=== PATIENT | female | born 1965 | race African-American/Black ===

== ENCOUNTER → 2017-07-28 | Day surgery (SDC) | payer BC ==
[2015-05-14 13:30] VITALS: BP 166/90
[~2017-07-28] MED LIST: CIPR500T PO; CYCL-331 PO; DIAZ5TAB4 PO; GABA600T2 PO; HYDR-2758 PO; HYDR25TA PO; IV RINGERS SOLUTION,LACTATED 1,000 ML IV ONE; LIDOCAINE 2% PF Vial for OR 5 ML VIAL. ONE; MAGN250T10 PO; MELO7.5T29 PO; MONT10TA6 PO; OMEP20CA9 PO; POTA20TA4 PO; PRED50TA PO; PROPOFOL 0 ML IV ONE; PROPOFOL 20 ML IV ONE; TOPI25TA7 PO; TRIA1CAP3 PO; XOPENEX HFA15 GM IH
== END | disposition home or self-care (01) ==
LOC: SURG 10:02
PROVIDERS: ATTEND Internal Medicine Gastroenterology
DX: K29.70 Gastritis, unspecified, without bleeding (principal); K44.9 Diaphragmatic hernia without obstruction or gangrene; Z88.6 Allergy status to analgesic agent; Z88.0 Allergy status to penicillin; Z88.8 Allergy status to other drugs, medicaments and biological substances
CPT/HCPCS: 43239; 82947; J2704; J7120; J2001

== ENCOUNTER 2018-04-11 02:49 | Inpatient (IN) | payer SELFPAY ==
[~2018-04-11] VITALS: Ht 160 cm; Wt 107.5 kg
[~2018-04-11 02:49] MED LIST changes: -IV RINGERS SOLUTION,LACTATED 1,000 ML IV ONE; -LIDOCAINE 2% PF Vial for OR 5 ML VIAL. ONE; -PROPOFOL 0 ML IV ONE; -PROPOFOL 20 ML IV ONE
--- NOTE | 2018-04-11 02:58 | ED.ADGEN ---
Past History Past Medical History: Anxiety, Arthritis, Asthma, COPD, Hypertension, Seizure, Other Past Surgical History: Appendectomy, Other Alcohol Use: None Drug Use: None Adult General Chief Complaint Chief Complaint ".. For last week and half.. I ve had this arm pain.. but I was pulling out a T shirt from wash .and I went to shake it really hard.. and I forgot.. and used my Lt arm... and now my elbow and wrist really hurts.. " HPI HPI Patient is a 52 year old female who presents with above hx and complaints of increased Lt arm pain. Pt. rates pain as 10 /10 tonight.. Pt has pain with any movement of Lt. arm. Pt. has had pain in Lt arm before after DVT / phlebitis from IV injection of FE for her chronic anemia. Pt. Pt. has hx of arthritis, HTN, COPD, Asthma, Fe def. Anemia, B vit. def, Chronic Headaches, Seizure disorder, Chronic Back pain, Obstructive Sleep Apnea, Obesity and Gout. Pt. normally follow s with Dr. Yip. Review of Systems Review of Systems Constitutional: Denies fever or chills [] Eyes: Denies change in visual acuity, redness, or eye pain [] HENT: Denies nasal congestion or sore throat [] Respiratory: Hx of Wheezing Cardiovascular: No additional information not addressed in HPI [] GI: Denies abdominal pain, nausea, vomiting, bloody stools or diarrhea [] : Denies dysuria or hematuria [] Musculoskeletal: Complaints of joint pain []More pain in Lt arm. Integument: Denies rash or skin lesions [] Neurologic: Denies headache, focal weakness or sensory changes [] Endocrine: Denies polyuria or polydipsia [] All other systems were reviewed and found to be within normal limits, except as documented in this note. Family History Family History Non-contributory Current Medications Current Medications Current Medications Medications (Trade) Dose Ordered Sig/Richa Start Time Stop Time Status Last Admin Dose Admin Aspirin (Children'S Aspirin) 324 mg 1X ONCE 04/11/18 03:30 04/11/18 03:31 DC 04/11/18 03:52 324 MG Colchicine (Colcrys) 0.6 mg 1X ONCE 04/11/18 03:30 04/11/18 03:31 DC 04/11/18 03:51 0.6 MG Lactated Ringer's 1,000 ml @ 1,000 mls/hr Q1H 04/11/18 03:30 04/11/18 04:30 DC 04/11/18 03:52 1,000 MLS/HR Morphine Sulfate (Morphine 10mg Syringe) 10 mg 1X ONCE 04/11/18 03:30 04/11/18 03:31 DC 04/11/18 03:52 10 MG See nursing for home meds Allergies Allergies Allergies Coded Allergies Type Severity Reaction Last Updated Verified codeine Allergy Intermediate respiratory issues 04/04/15 Yes iodine Allergy Intermediate 04/04/15 Yes iodine Allergy Intermediate 01/02/15 No penicillin Allergy Intermediate 05/14/15 Yes Barbiturates Adverse Reaction Intermediate too drowsy 04/04/15 Yes Physical Exam Physical Exam Constitutional:in acute distress, appears very uncomfortable in appearance. [] HENT: Normocephalic, atraumatic, bilateral external ears normal, oropharynx moist, no oral exudates, nose normal. [] Eyes: PERRLA, EOMI, conjunctiva normal, no discharge. [] Neck: Normal range of motion, no tenderness, supple, no stridor. [] Cardiovascular:Tachycardia Heart rate regular rhythm, no murmur [] Lungs & Thorax: Bilateral breath sounds equal at apex with scattered wheezes on auscultation [] Old surgery scars. Abdomen: Bowel sounds normal, soft, no tenderness, no masses, no pulsatile masses. Obese, old surgery scars. Skin: Warm, dry, no erythema, no rash. [] Back: No tenderness, no CVA tenderness. [] Extremities: Lt arm, elbow tenderness, no cyanosis, no clubbing, ROM limited in lt arm due to pain, trace edema. [] Neurologic: Alert and oriented X 3, normal motor function, normal sensory function, no focal deficits noted. [] Psychologic: Affect anxious, judgement normal, mood normal. [] Current Patient Data Vital Signs Vital Signs Date Time Temp Pulse Resp B/P (MAP) Pulse Ox O2 Delivery O2 Flow Rate FiO2 04/11/18 02:55 97.9 103 18 98 Room Air Lab Results Laboratory Tests Test 04/11/18 03:27 04/11/18 03:29 White Blood Count 9.1 x10^3/uL (4.0-11.0) Red Blood Count 4.93 x10^6/uL (3.50-5.40) Hemoglobin 14.2 g/dL (12.0-15.5) Hematocrit 42.6 % (36.0-47.0) Mean Corpuscular Volume 86 fL (79-100) Mean Corpuscular Hemoglobin 29 pg (25-35) Mean Corpuscular Hemoglobin Concent 33 g/dL (31-37) Red Cell Distribution Width 14.4 % (11.5-14.5) Platelet Count 254 x10^3/uL (140-400) Neutrophils (%) (Auto) 48 % (31-73) Lymphocytes (%) (Auto) 40 % (24-48) Monocytes (%) (Auto) 9 % (0-9) Eosinophils (%) (Auto) 3 % (0-3) Basophils (%) (Auto) 0 % (0-3) Neutrophils # (Auto) 4.3 x10^3uL (1.8-7.7) Lymphocytes # (Auto) 3.6 x10^3/uL (1.0-4.8) Monocytes # (Auto) 0.8 x10^3/uL (0.0-1.1) Eosinophils # (Auto) 0.3 x10^3/uL (0.0-0.7) Basophils # (Auto) 0.0 x10^3/uL (0.0-0.2) Erythrocyte Sedimentation Rate 13 (0-25) Reticulocyte Count (auto) 1.9 % (0.5-2.5) Prothrombin Time 10.1 SEC (9.4-11.4) Prothrombin Time INR 1.0 (0.9-1.1) PTT 25 SEC (23-33) D-Dimer (Mohini) 0.59 mg/L (0.00-0.50) H Sodium Level 138 mmol/L (136-145) Potassium Level 3.5 mmol/L (3.5-5.1) Chloride Level 101 mmol/L (98-107) Carbon Dioxide Level 28 mmol/L (21-32) Anion Gap 9 (6-14) Blood Urea Nitrogen 14 mg/dL (7-20) Creatinine 1.1 mg/dL (0.6-1.0) H Estimated GFR (Cockcroft-Gault) 62.6 Glucose Level 184 mg/dL (70-99) H Uric Acid 7.2 mg/dL (2.6-6.0) H Calcium Level 9.1 mg/dL (8.5-10.1) Magnesium Level 1.9 mg/dL (1.8-2.4) Total Bilirubin 0.4 mg/dL (0.2-1.0) Direct Bilirubin 0.1 mg/dL (0.0-0.2) Aspartate Amino Transferase (AST) 23 U/L (15-37) Alanine Aminotransferase (ALT) 52 U/L (14-59) Alkaline Phosphatase 168 U/L (46-116) H Creatine Kinase 156 U/L (26-192) Creatine Kinase MB (Mass) 0.6 ng/mL (0.0-3.6) Creatine Kinase MB Relative Index 0.4 % (0-4) Troponin I Quantitative < 0.017 ng/mL (0-0.055) C-Reactive Protein 13.7 mg/L (0-3.3) H KG-Jxk-H-Type Natriuretic Peptide 18 pg/mL (0-124) Total Protein 8.0 g/dL (6.4-8.2) Albumin 3.8 g/dL (3.4-5.0) Lipase 148 U/L (73-393) Urine Collection Type Unknown Urine Color Yellow Urine Clarity Clear Urine pH 5.5 Urine Specific [place] 1.020 Urine Protein Neg (NEG-TRACE) Urine Glucose (UA) Neg mg/dL (NEG) Urine Ketones (Stick) Neg mg/dL (NEG) Urine Blood Neg (NEG) Urine Nitrite Neg (NEG) Urine Bilirubin Neg (NEG) Urine Urobilinogen Dipstick 0.2 mg/dL (0.2 mg/dL) Urine Leukocyte Esterase Neg (NEG) Urine RBC 0 /HPF (0-2) Urine WBC Occ /HPF (0-4) Urine Squamous Epithelial Cells Few /LPF Urine Bacteria 0 /HPF (0-FEW) Urine Opiates Screen Neg (NEG) Urine Methadone Screen Neg (NEG) Urine Barbiturates Neg (NEG) Urine Phencyclidine Screen Neg (NEG) Urine Amphetamine/Methamphetamine Neg (NEG) Urine Benzodiazepines Screen Neg (NEG) Urine Cocaine Screen Neg (NEG) Urine Cannabinoids Screen Neg (NEG) Urine Ethyl Alcohol Neg (NEG) EKG EKG My interpretation of EKG shows sinus tachycardia at 102 bpm. There is some nonspecific contour abnormalities in anterior lateral leads. There is some nonspecific T-wave changes no findings acute STEMI of contralateral changes.[] Radiology/Procedures Radiology/Procedures My interpretation chest x-ray shows borderline cardiomegaly. No acute cardiopulmonary findings. My interpretation of the elbow wrist left arm show osteoarthritis of the joints. But no obvious fracture dislocation. Formal reading is pending[] Course & Med Decision Making Course & Med Decision Making Pertinent Labs and Imaging studies reviewed. (See chart for details) Discussed testing and presentation with Dr. Yip.- Will admit for further evaluation and treatment. Suspect inflammatory disorder such as gout or pseudogout. We'll do small doses of colchicine pending labs. Note there has been late repotin in labs and charting due to computer malfunction. [] Final Impression Final Impression 1. Left arm pain/ CP 2. Hypertension[] 3. DM 184 4. Elevated Uric Acid 7.2 5. Elevated Creat. 6. Elevated CRP 7. Elevated D-dimer Dragon Disclaimer Dragon Disclaimer This electronic medical record was generated, in whole or in part, using a voice recognition dictation system. KALIE HENDRIX MD Apr 11, 2018 02:58
[2018-04-11] MEDS ORDERED: COLCHICINE 0.6 MG TABLET PO ONE (03:30)
[2018-04-11] MEDS ORDERED: IV RINGERS SOLUTION,LACTATED 1,000 ML IV SCH (03:30)
[2018-04-11] MEDS ORDERED: ASPIRIN 81 MG TAB.CHEW PO ONE (03:30)
[2018-04-11] MEDS ORDERED: MORPHINE SULFATE 10 MG/ML SYRINGE. SQ ONE ×2 (03:30→05:00)
--- NOTE | 2018-04-11 03:34 | EKG ---
[address] [address] Test Date: 2018-04-11 Test Time: 03:27:35 Pat Name: JERROD CUMMINS Department: Room: Gender: F Child Welfare Assistant: YELENA : 1965 Requested By: KALIE HENDRIX Order Number: [id number] Reading MD: Dontrell Padilla MD Measurements Intervals [place] Rate: 102 P: 44 [place]: 138 QRS: 13 QRSD: 84 T: -8 QT: 322 QTc: 424 Interpretive Statements SINUS TACHYCARDIA Electronically Signed On 04-11-2018 11:15:14 CDT by Dontrell Padilla MD
[2018-04-11 03:51] LABS: BASO % 0 % (0-3); EOS # 0.3 x10^3/uL (0.0-0.7); EOS % 3 % (0-3); HEMATOCRIT 42.6 % (36.0-47.0); HEMOGLOBIN 14.2 g/dL (12.0-15.5); LYMPH # 3.6 x10^3/uL (1.0-4.8); LYMPH % 40 % (24-48); MEAN CORPUSCULAR HEMOGLOBIN 29 pg (25-35); MEAN CORPUSCULAR HGB CONC 33 g/dL (31-37); MEAN CORPUSCULAR VOLUME 86 fL (79-100); MONO # 0.8 x10^3/uL (0.0-1.1); MONO % 9 % (0-9); NEUT # 4.3 x10^3uL (1.8-7.7); NEUT % 48 % (31-73); PLATELET COUNT 254 x10^3/uL (140-400); RED BLOOD COUNT 4.93 x10^6/uL (3.50-5.40); RED CELL DISTRIBUTION WIDTH 14.4 % (11.5-14.5); WHITE BLOOD COUNT 9.1 x10^3/uL (4.0-11.0)
[2018-04-11 03:55] LABS: BACTERIA,URINE 0 /HPF (0-FEW); BILIRUBIN,URINE NEG (NEG); CLARITY,URINE CLEAR; COLOR,URINE YELLOW; GLUCOSE,URINE NEG (NEG); NITRITE,URINE NEG (NEG); RBC,URINE 0 /HPF (0-2); SQUAMOUS EPITHELIAL CELL,UR FEW /LPF; UROBILINOGEN,URINE 0.2 mg/dL (0.2 mg/dL); WBC,URINE OCC /HPF (0-4)
[2018-04-11 04:05] LABS: BARBITURATES NEG (NEG); BENZODIAZEPINES NEG (NEG); CANNABINOIDS NEG (NEG); COCAINE NEG (NEG); METHADONE NEG (NEG); OPIATES NEG (NEG); PHENCYCLIDINE NEG (NEG)
[2018-04-11 04:06] LABS: AMPHETAMINE/METHAMPHETAMINE NEG (NEG)
[2018-04-11 04:12] LABS: ALBUMIN 3.8 g/dL (3.4-5.0); C REACTIVE PROTEIN 13.7 mg/L (0-3.3); CALCIUM 9.1 mg/dL (8.5-10.1); CREATININE 1.1 mg/dL (0.6-1.0); DIRECT BILIRUBIN 0.1 mg/dL (0.0-0.2); GFR 62.6; MAGNESIUM 1.9 mg/dL (1.8-2.4); POTASSIUM 3.5 mmol/L (3.5-5.1); TOTAL BILIRUBIN 0.4 mg/dL (0.2-1.0); URIC ACID 7.2 mg/dL (2.6-6.0)
[2018-04-11] MEDS ORDERED: ENOXAPARIN ** NOTE DOSE ** SYRINGE SQ ONE (05:00)
[2018-04-11] MEDS ORDERED: ANTI-COAG MONITOR BY PHARMACY. MC PRN (05:15)
[2018-04-11 05:55] VITALS: BP 168/112
[2018-04-11] MEDS ORDERED: ERGO500027 PO (06:19)
[2018-04-11] MEDS ORDERED: METO25TA4 PO (06:19)
[2018-04-11] MEDS ORDERED: TOPI100T8 PO (06:20)
[2018-04-11 06:34] LABS: SEDIMENTATION RATE 13 (0-25)
--- NOTE | 2018-04-11 06:56 | RAD ---
PA and lateral chest x-ray HISTORY: Left shoulder pain and chest pain. FINDINGS: Heart size normal. Mediastinal silhouette is normal. No pneumothorax. No pleural effusions. On the frontal film at the right lung base there is a ill-defined 2 cm nodular density difficult to localize on the lateral film may project posteriorly. Left lung clear. Bones unremarkable. IMPRESSION: 2 cm nodular density at the right lower lobe, a pulmonary nodule is a possibility. Correlation with CT chest imaging recommended. Left elbow x-rays 3 views. HISTORY: Left elbow pain. FINDINGS: No abnormal elevation of the fat pads to suggest a joint effusion. No fracture. No dislocation. Small osteophytes at the ulna humeral joint. Soft tissues are unremarkable. IMPRESSION: No acute osseous injury of the left elbow. Osteoarthritis of the ulnohumeral joint. Left wrist x-rays 3 views. HISTORY: Left wrist pain. FINDINGS: No fracture, dislocation or arthritic change of the left wrist. The soft tissues are unremarkable. IMPRESSION: No acute osseous injury of the left wrist. Electronically signed by: Raman Rodríguez MD (04/11/2018 6:52 AM) [facility]
[2018-04-11] MEDS ORDERED: KETOROLAC 30 MG/ML VIAL. IV PRN (07:45)
[2018-04-11] MEDS ORDERED: LEVALBUTEROL TARTRATE IH SCH (09:15)
[2018-04-11] MEDS ORDERED: hydrOXYzine HCL 25 MG TABLET PO PRN (09:15)
[2018-04-11] MEDS ORDERED: ORPHENADRINE CITRATE 60 MG/2 ML VIAL. IM ONE ×2 (09:30→20:00)
[2018-04-11] MEDS ORDERED: ALBUTEROL SULFATE 2.5 MG/3 ML NEBU. NEB PRN (10:15)
[2018-04-11 10:53] VITALS: BP 186/116
[2018-04-11] MEDS: METOPROLOL TART IMMED RELEASE 25 MG TABLET PO SCH ×2 (10:58→20:21)
[2018-04-11] MEDS: TRIAMTERENE/HCTZ 37.5/25MG TABLET. PO SCH (10:58)
[2018-04-11] MEDS: POTASSIUM CHLORIDE 20 MEQ TABLET.ER. PO SCH (10:58)
[2018-04-11] MEDS: TOPIRAMATE 100 MG TABLET. PO SCH ×2 (10:59→20:21)
--- NOTE | 2018-04-11 12:11 | PDOC2 ---
CONSULT Date of Admission DATE: 04/11/18 TIME: 11:53 Reason for Consult: cp Problem List Problems Medical Problems: (1) Arm pain Status: Acute (2) Arm pain, left Status: Acute (3) Chest pain Status: Acute History of Present Illness Ms Varela is a 52 year old female who presents with complaints of chest, left arm and neck pain. She reports she woke yesterday am with the left arm and neck pain. Pain is sharp, shooting pain which is increased with movement of her head and left arm. She also reports mid sternal chest pressure and feeling like cant take deep breath. She does report that the chest discomfort has been off and on for at least 1 year. She reports episodes of PND. She reports a decrease in her functional capacity to < 1 block over the last year. She reports significant dyspnea and feeling like she might pass out if she walks 1 block. She reports occasional sensation of her heart racing with associated dyspnea and lightheadedness. Cardiovascular: HTN, hyperipidemia, Other (DVT upper arm post phlebitis after iron infusion) Pulmonary: COPD CENTRAL NERVOUS SYSTEM: Periperal neuropathy, Seizure GI: GERD, GI bleed Heme/Onc: Iron deficiency Anemia, Other (prior blood transfusions) Musculoskeletal: Other (back and neck pain, degenerative disc disease) Rheumatologic: Gout Endocrine: Diabetes Past Surgical History: Appendectomy, Other (menisectomy right knee x 2, breast reduction) Family History premature coronary disease in multiple family members Family History: Coronary Artery Disease, Diabetes, Heart Disease, Hypertension , Stroke Social History non smoker, no significant ETOH, no illicit drugs Current Medications Current Medications Aspirin (Children'S Aspirin) 324 mg 1X ONCE PO Last administered on 04/11/18at 03:52; Start 04/11/18 at 03:30; Stop 04/11/18 at 03:31; Status DC Lactated Ringer's 1,000 ml @ 1,000 mls/hr Q1H IV Last administered on at 03:52; Start 04/11/18 at 03:30; Stop 04/11/18 at 04:30; Status DC Morphine Sulfate (Morphine 10mg Syringe) 10 mg 1X ONCE SQ Last administered on 04/11/18at 03:52; Start 04/11/18 at 03:30; Stop 04/11/18 at 03:31; Status DC Colchicine (Colcrys) 0.6 mg 1X ONCE PO Last administered on 04/11/18at 03:51; Start 04/11/18 at 03:30; Stop 04/11/18 at 03:31; Status DC Morphine Sulfate (Morphine 10mg Syringe) 10 mg 1X ONCE SQ Last administered on 04/11/18at 04:51; Start 04/11/18 at 05:00; Stop 04/11/18 at 05:02; Status DC Enoxaparin Sodium (Lovenox 100mg Syringe) 100 mg 1X ONCE SQ Last administered on 04/11/18at 04:50; Start 04/11/18 at 05:00; Stop 04/11/18 at 05:02; Status DC Enoxaparin Sodium (Lovenox 100mg Syringe) 100 mg BID SQ ; Start 04/11/18 at 21: 00 Colchicine (Colcrys) 0.6 mg TID PO ; Start 04/11/18 at 14:00 Info (Anti-Coagulation Monitoring By Pharmacy) 1 each PRN DAILY PRN MC SEE COMMENTS; Start 04/11/18 at 05:15 Ketorolac Tromethamine (Toradol) 30 mg PRN Q6HRS PRN IV PAIN Last administered on 04/11/18at 09:10; Start 04/11/18 at 07:45; Stop 04/16/18 at 07:44 Cyclobenzaprine HCl (Flexeril) 10 mg TID PO ; Start 04/11/18 at 14:00 Hydroxyzine HCl (Atarax) 25 mg PRN TID PRN PO migraines; Start 04/11/18 at 09: 15 Metoprolol Tartrate (Lopressor) 25 mg BID PO Last administered on 04/11/18at 10: 58; Start 04/11/18 at 10:00 Potassium Chloride (Klor-Con) 20 meq DAILY PO Last administered on 04/11/18at 10 :58; Start 04/11/18 at 10:00 Vitamin D (Vitamin D3) 50,000 unit WEEKLY PO ; Start 04/18/18 at 09:00 Gabapentin (Neurontin) 600 mg TID PO ; Start 04/11/18 at 14:00 Non-Formulary Medication (Levalbuterol Tartrate (Xopenex Hfa)) 3 puff PRN Q4- 6HRS IH ; Start 04/11/18 at 09:15; Stop 04/11/18 at 10:10; Status DC Magnesium Oxide (Magnesium Oxide) 200 mg TID PO ; Start 04/11/18 at 14:00 Non-Formulary Medication (Meloxicam ) 7.5 mg TID PO ; Start 04/11/18 at 14:00; Stop 04/11/18 at 14:00; Status DC Montelukast Sodium (Singulair) 10 mg QHS PO ; Start 04/11/18 at 21:00 Pantoprazole Sodium (Protonix) 40 mg DAILYAC PO ; Start 04/12/18 at 07:30 Topiramate (Topamax) 100 mg BID PO Last administered on 04/11/18at 10:59; Start 04/11/18 at 10:00 Triamterene/HCTZ (Maxzide 37.5/ 25mg) 1 tab DAILY PO Last administered on at 10:58; Start 04/11/18 at 10:00 Orphenadrine Citrate (Norflex) 60 mg 1X ONCE IM Last administered on at 10:57; Start 04/11/18 at 09:30; Stop 04/11/18 at 09:51; Status DC Albuterol Sulfate (Ventolin) 2.5 mg PRN Q4HRS PRN NEB SHORTNESS OF BREATH; Start 04/11/18 at 10:15 Active Scripts Active Klor-Con M20 (Potassium Chloride) 20 Meq Tab.er.prt 1 Tab PO DAILY Reported Topiramate 100 Mg Tablet 100 Mg PO BID Vitamin D2 (Ergocalciferol (Vitamin D2)) 50,000 Unit Capsule 1 Cap PO WEEKLY weekly on tuesdays Metoprolol Tartrate 25 Mg Tablet 25 Mg PO BID Magnesium (Magnesium Oxide) 250 Mg Tablet 250 Mg PO TID Hydroxyzine Hcl 25 Mg Tablet 25 Mg PO PRN TID PRN Meloxicam 7.5 Mg Tablet 7.5 Mg PO TID Xopenex Hfa (Levalbuterol Tartrate) 15 Gm Hfa.aer.ad 3 Puff IH PRN Q4-6HRS Gabapentin 600 Mg Tablet 600 Mg PO TID Triamterene-Hctz 37.5-25 Mg Cp (Triamterene/Hydrochlorothiazid) 1 Each Capsule 1 Each PO DAILY Omeprazole 20 Mg Capsule.dr 20 Mg PO DAILY Singulair Tablet (Montelukast Sodium) 10 Mg Tablet 10 Mg PO DAILY Cyclobenzaprine Hcl 10 Mg Tablet 10 Mg PO TID Allergies: Coded Allergies: codeine (Verified Allergy, Intermediate, respiratory issues, 04/04/15) iodine (Verified Allergy, Intermediate, 04/04/15) iodine (Unverified Allergy, Intermediate, 01/02/15) penicillin (Verified Allergy, Intermediate, 05/14/15) Barbiturates (Verified Adverse Reaction, Intermediate, too drowsy, 04/04/15) Review of System as per HPI or negative Physical Exam musculoskeletal - palpable muscle spasm superior trapezius muscle, painful movement of neck and arm General: Alert, Oriented X3, Cooperative, mild distress HEENT: Atraumatic, EOMI, Mucous membr. moist/pink Lungs: Clear to auscultation Heart: Regular rate, Normal S1, Normal S2 Abdomen: Normal bowel sounds, Soft Extremities: No cyanosis, Normal pulses, Other (trace edema bilateral lower extremities) Neuro: Normal speech, Strength at 5/5 X4 ext Psych/Mental Status: Mental status NL, Mood NL VITALS Vital Signs Date Time Temp Pulse Resp B/P (MAP) Pulse Ox O2 Delivery O2 Flow Rate FiO2 04/11/18 10:58 94 186/116 04/11/18 10:53 97.6 24 90 Room Air Labs Laboratory Tests Test 04/11/18 03:27 04/11/18 03:29 04/11/18 07:21 04/11/18 10:36 White Blood Count 9.1 x10^3/uL (4.0-11.0) Red Blood Count 4.93 x10^6/uL (3.50-5.40) Hemoglobin 14.2 g/dL (12.0-15.5) Hematocrit 42.6 % (36.0-47.0) Mean Corpuscular Volume 86 fL (79-100) Mean Corpuscular Hemoglobin 29 pg (25-35) Mean Corpuscular Hemoglobin Concent 33 g/dL (31-37) Red Cell Distribution Width 14.4 % (11.5-14.5) Platelet Count 254 x10^3/uL (140-400) Neutrophils (%) (Auto) 48 % (31-73) Lymphocytes (%) (Auto) 40 % (24-48) Monocytes (%) (Auto) 9 % (0-9) Eosinophils (%) (Auto) 3 % (0-3) Basophils (%) (Auto) 0 % (0-3) Neutrophils # (Auto) 4.3 x10^3uL (1.8-7.7) Lymphocytes # (Auto) 3.6 x10^3/uL (1.0-4.8) Monocytes # (Auto) 0.8 x10^3/uL (0.0-1.1) Eosinophils # (Auto) 0.3 x10^3/uL (0.0-0.7) Basophils # (Auto) 0.0 x10^3/uL (0.0-0.2) Erythrocyte Sedimentation Rate 13 (0-25) Prothrombin Time 10.1 SEC (9.4-11.4) Prothromb Time International Ratio 1.0 (0.9-1.1) Activated Partial Thromboplast Time 25 SEC (23-33) D-Dimer (Mohini) 0.59 mg/L (0.00-0.50) Sodium Level 138 mmol/L (136-145) Potassium Level 3.5 mmol/L (3.5-5.1) Chloride Level 101 mmol/L (98-107) Carbon Dioxide Level 28 mmol/L (21-32) Anion Gap 9 (6-14) Blood Urea Nitrogen 14 mg/dL (7-20) Creatinine 1.1 mg/dL (0.6-1.0) Estimated GFR (Cockcroft-Gault) 62.6 Glucose Level 184 mg/dL (70-99) Uric Acid 7.2 mg/dL (2.6-6.0) Calcium Level 9.1 mg/dL (8.5-10.1) Magnesium Level 1.9 mg/dL (1.8-2.4) Total Bilirubin 0.4 mg/dL (0.2-1.0) Direct Bilirubin 0.1 mg/dL (0.0-0.2) Aspartate Amino Transf (AST/SGOT) 23 U/L (15-37) Alanine Aminotransferase (ALT/SGPT) 52 U/L (14-59) Alkaline Phosphatase 168 U/L (46-116) Creatine Kinase 156 U/L (26-192) Creatine Kinase MB (Mass) 0.6 ng/mL (0.0-3.6) Creatine Kinase MB Relative Index 0.4 % (0-4) Troponin I Quantitative < 0.017 ng/mL (0-0.055) < 0.017 ng/mL (0-0.055) C-Reactive Protein 13.7 mg/L (0-3.3) QY-Jwy-[id number]-Type Natriuretic Peptide 18 pg/mL (0-124) Total Protein 8.0 g/dL (6.4-8.2) Albumin 3.8 g/dL (3.4-5.0) Lipase 148 U/L (73-393) Urine Collection Type Unknown Urine Color Yellow Urine Clarity Clear Urine pH 5.5 Urine Specific [place] 1.020 Urine Protein Neg (NEG-TRACE) Urine Glucose (UA) Neg mg/dL (NEG) Urine Ketones (Stick) Neg mg/dL (NEG) Urine Blood Neg (NEG) Urine Nitrite Neg (NEG) Urine Bilirubin Neg (NEG) Urine Urobilinogen Dipstick 0.2 mg/dL (0.2 mg/dL) Urine Leukocyte Esterase Neg (NEG) Urine RBC 0 /HPF (0-2) Urine WBC Occ /HPF (0-4) Urine Squamous Epithelial Cells Few /LPF Urine Bacteria 0 /HPF (0-FEW) Urine Opiates Screen Neg (NEG) Urine Methadone Screen Neg (NEG) Urine Barbiturates Neg (NEG) Urine Phencyclidine Screen Neg (NEG) Urine Amphetamine/Methamphetamine Neg (NEG) Urine Benzodiazepines Screen Neg (NEG) Urine Cocaine Screen Neg (NEG) Urine Cannabinoids Screen Neg (NEG) Urine Ethyl Alcohol Neg (NEG) Glucose (Fingerstick) 168 mg/dL (70-99) Test 04/11/18 11:19 Glucose (Fingerstick) 202 mg/dL (70-99) Images EKG - sinus rhythm with nonspecific t abn in inferior leads, no acute ischemic changes CXR - IMPRESSION: 2 cm nodular density at the right lower lobe, a pulmonary nodule is a possibility. Correlation with CT chest imaging recommended. VQ pending Assessment/Plan 1. Chest pain 2. neck and upper arm pain, left 3. dyspnea on exertion and PND 4. palpitations with lightheadedness and dyspnea 5. hypertension 6. hyperlipidemia 7. diabetes mellitus 8. abn EKG 9. family history of premature coronary disease I suspect neck and arm pain secondary to cervical radiculopathy. Chest pain may also be secondary to this, however due to the progressive nature of the chest pain, fatigue and dyspnea as well as her comorbidities, suggest echo and MPI to rule out IHD. Check second set CE now. Check lipids. Resume home medications and plan for MPI tomorrow. Would recommend outpatient event/MCT monitoring. Will add ACEI for pressure control. HERMINIA DUARTE APRN Apr 11, 2018 12:11
[2018-04-11 12:39] VITALS: BP 157/95
[2018-04-11] MEDS ORDERED: NON FORMULARY ITEM (Meloxicam 7.5 MG) PO SCH (14:00)
--- NOTE | 2018-04-11 14:13 | RAD ---
NUCLEAR MEDICINE VENTILATION PERFUSION SCAN History: Chest pain x6 days. Chronic short of breath. History of DVT 2016. Comparison: Two-view chest, same day. Technique: Patient initially ventilated with 9.5 mCi xenon-133 gas. Anterior and posterior images of the lungs acquired during initial breath-hold, equilibrium, and washout phases. Perfusion portion performed after intravenous administration of 5.2 mCi Technetium 99m MAA. Multiple projection planar images of the lungs were obtained. Findings: The initial breath-hold ventilation images are homogeneous. There is retention of tracer in the right lung base. There is accumulation of xenon-133 in the liver on the washout phase images suggestive of fatty infiltration. Perfusion images demonstrate no perfusion defects. IMPRESSION: 1. Normal pulmonary perfusion. Negative for pulmonary embolism. 2. Air trapping in the right lung base. 3. Evidence of fatty infiltration of the liver. Electronically signed by: Colin Rajan MD (04/11/2018 2:10 PM) [facility]
--- NOTE | 2018-04-11 14:21 | HP ---
ADMIT DATE: 04/11/2018 HISTORY OF PRESENT ILLNESS: The patient is a 52-year-old female who came in through the Emergency Room. She was having severe pain down her left arm pain. She rated the pain as approximately 9/10. Notes it does bother her when she does move it. She has had previous DVT and phlebitis in that left arm as well. The patient apparently had some chest discomfort and the patient noted for week and a half, she has been having arm pain with pulling out a T-shirt from the washer, went to shake it very hard and used her left arm. Her whole arm hurts including her left elbow. The patient was admitted for rule out ND protocol, consult with Cardiology. PAST MEDICAL HISTORY: The patient does have a history of atrial fibrillation, generalized swelling. She has had history of benign brain tumor, seizures, headaches, coronary artery disease, deep venous thrombosis, asthma, arthritis, gout, orthopedic surgery for right meniscal tear repair, diabetes, morbid obesity, anxiety, anemia, blood transfusions, surgery for breast reduction in 1993, some sleep difficulties. IMMUNIZATIONS: Unknown. FAMILY HISTORY: Mother with myocardial infarction. Maternal grandfather with lung cancer, stroke and coronary artery disease in her mother and father had coronary artery disease and history of pacemaker. ALLERGIES: She has allergies or adverse reactions to BARBITURATES, CODEINE, IODINE AND PENICILLIN. SOCIAL HISTORY: Denies smoking, alcohol or drug use. MEDICATIONS: Xopenex, cyclobenzaprine, metoprolol tartrate, meloxicam, gabapentin 600 t.i.d., topiramate 100 mg b.i.d., hydroxyzine 25 mg t.i.d., potassium chloride 20 mEq a day, Maxzide 37.5 mg daily, montelukast sodium (Singulair) 10 mg daily, magnesium oxide, Prilosec 20 mg a day and vitamin D. REVIEW OF SYSTEMS: Outside of the pain down the left arm and left elbow, the patient denies any shortness of breath, did not have any nausea or diaphoresis with it. The patient otherwise seems to be resting fairly comfortably there. She denied problem with her bowels or bladder or any other activity along those lines. PHYSICAL EXAMINATION: GENERAL: On exam, this is a pleasant, -[place] female in no apparent distress. VITAL SIGNS: Blood pressure 157/95, respiratory rate 24, pulse 94. HEENT: The patient's head was atraumatic, normocephalic. Eyes: PERRLA without jaundice. The mouth and throat were normal. NECK: Supple, no JVD, carotid bruits or thyromegaly. LUNGS: Diminished throughout, poor movement of air. CARDIOVASCULAR: Regular sinus rhythm, S1, S2, without murmur, rub, thrill, or extra heart sounds. ABDOMEN: Soft, nontender. EXTREMITIES: No clubbing, cyanosis or edema except for the left arm. Unable to really move it. There was severe pain in the left arm, especially the left elbow, but from the shoulder, upper chest wall area down the arm itself. She had extreme difficulty in moving that arm if at all. The patient had x-rays taken of the left elbow which showed some possible osteoarthritis, the rest was unremarkable. The patient did have a 2 cm nodular density at the right lower lobe, pulmonary nodule is a possibility and would require a CT scan of her chest as an outpatient. The patient also is having a V/Q scan because of an elevated D-dimer and her fear of being in larger devices. KEN NAPIER MD DR: NANCY/mehran JOB#: [id number] / [id number]
--- NOTE | 2018-04-11 14:38 | CARD ---
MR#: [id number] Date of Study: 04/11/2018 Ordering Physician: HERMINIA DUARTE, Referring Physician: KEN NAPIER Tech: Rhonda Bourne YOLIS APPROVED REPORT EXAM: Two-dimensional and M-mode echocardiogram with Doppler and color Doppler. Other Information Quality : Good INDICATION Chest Pain 2D DIMENSIONS RVDd2.0 (2.9-3.5cm)Left Atrium(2D)3.7 (1.6-4.0cm) IVSd1.1 (0.7-1.1cm)Aortic Root(2D)2.6 (2.0-3.7cm) LVDd5.3 (3.9-5.9cm)LVOT Diameter2.1 (1.8-2.4cm) PWd1.0 (0.7-1.1cm)LVDs3.3 (2.5-4.0cm) SV88.9 mlLVEF(%)55.0 (>50%) Aortic Valve AoV Peak Fabricio.143.2cm/sAoV VTI27.7cm AO Peak GR.8.2mmHgLVOT Peak Fabricio.95.1cm/s LVOT VTI 21.53cmAO Mean GR.5mmHg TRINO (VMAX)2.31bt2UPC (VTI)2.60cm2 Mitral Valve MV E Iutrjwfl573.2cm/sMV DECEL MFRQ529gs MV A Pknaiupd02.6cm/sE/A Ratio1.2 Tricuspid Valve TR P. Nyhflfzq942zi/sRAP HROGAYDA9ziKe TR Peak Gr.77uqSiFMVF54hcIf Pulmonary Vein S1 Kmckjqff18.8cm/sD2 Cjibcgfi29.8cm/s LEFT VENTRICLE The left ventricle is normal size. There is normal left ventricular wall thickness. The left ventricu lar systolic function is normal. The Ejection Fraction is 55-60%. There is normal LV segmental wall m otion. RIGHT VENTRICLE The right ventricle is normal size. The right ventricular systolic function is normal. ATRIA The left atrium size is normal. The right atrium size is normal. The interatrial septum is intact wit h no evidence for an atrial septal defect or patent foramen ovale as noted on 2-D or Doppler imaging. AORTIC VALVE The aortic valve is calcified but opens well. Doppler and Color Flow revealed no significant aortic r egurgitation. There is no significant aortic valvular stenosis. MITRAL VALVE The mitral valve is normal in structure and function. There is no evidence of mitral valve prolapse. There is no mitral valve stenosis. Doppler and Color-flow revealed trace mitral regurgitation. TRICUSPID VALVE The tricuspid valve is normal in structure and function. Doppler and Color Flow revealed trace tricus pid regurgitation. The PA pressure was estimated at 19 mmHg. There is no tricuspid valve stenosis. PULMONIC VALVE The pulmonic valve is not well visualized. Doppler and Color Flow revealed no pulmonic valvular regur gitation. There is no pulmonic valvular stenosis. GREAT VESSELS The aortic root is normal in size. The ascending aorta is normal in size. The IVC is normal in size a nd collapses >50% with inspiration. PERICARDIAL EFFUSION There is no evidence of significant pericardial effusion. Critical Notification Critical Value: No <Conclusion> The left ventricular systolic function is normal. The Ejection Fraction is 55-60%. There is normal LV segmental wall motion. Trace mitral regurgitation. Trace tricuspid regurgitation. The PA pressure was estimated at 19 mmHg. There is no evidence of significant pericardial effusion. Signed by : Yohannes Elam, Electronically Approved : 04/11/2018 14:37:27
[2018-04-11] MEDS: CYCLOBENZAPRINE 10 MG TABLET. PO SCH ×2 (14:39→20:23)
[2018-04-11] MEDS: COLCHICINE 0.6 MG TABLET PO SCH ×2 (14:39→20:21)
[2018-04-11] MEDS: MAGNESIUM OXIDE 400 MG TABLET PO SCH ×2 (14:39→20:32)
[2018-04-11] MEDS: GABAPENTIN 300 MG CAPSULE. PO SCH ×2 (14:40→20:23)
[2018-04-11 15:23] VITALS: BP 170/118
--- NOTE | 2018-04-11 19:23 | RAD ---
INDICATION: Pain and edema. TECHNIQUE: Grayscale, color-flow, and spectral waveform analysis of the left upper extremity was performed. FINDINGS: All vessels are compressible with normal phasicity of waveform and augmentation. No thrombus on grayscale or color imaging is apparent. IMPRESSION: Exam is negative for deep vein thrombosis in the left upper extremity. Electronically signed by: Johnny Gracia MD (04/11/2018 7:20 PM) [facility]
--- NOTE | 2018-04-11 19:24 | RAD ---
Clinical Indication: Bilateral lower extremity pain Technique: Study is dated April 11, 2018. Rivera scale, color flow and spectral waveform analysis was performed of both lower extremities with and without compression. Findings: There is normal compressibility of all visualized vein segments. No evidence of DVT is present on grayscale or color images. There is normal phasicity of waveform. There is normal augmentation . Impression: No evidence of deep vein thrombosis in either lower extremity. Electronically signed by: Johnny Gracia MD (04/11/2018 7:21 PM) [facility]
[2018-04-11 19:45] VITALS: BP 168/115
[2018-04-11] MEDS: amLODIPine BESYLATE 10 MG TABLET PO SCH (20:22)
[2018-04-11] MEDS: ENOXAPARIN ** NOTE DOSE ** SYRINGE SQ SCH (20:23)
[2018-04-11] MEDS ORDERED: MONTELUKAST 10 MG TABLET. PO SCH (21:00)
[2018-04-11 23:01] VITALS: BP 166/119
[2018-04-12 01:09] LABS: HEMOGLOBIN A1C 7.8 % (4.8-5.6)
[2018-04-12 06:26] VITALS: BP 137/91
[2018-04-12 06:45] LABS: BASO # 0.1 x10^3/uL (0.0-0.2); BASO % 1 % (0-3); EOS # 0.6 x10^3/uL (0.0-0.7); EOS % 9 % (0-3); HEMATOCRIT 43.4 % (36.0-47.0); HEMOGLOBIN 14.4 g/dL (12.0-15.5); LYMPH # 2.7 x10^3/uL (1.0-4.8); LYMPH % 38 % (24-48); MEAN CORPUSCULAR HEMOGLOBIN 29 pg (25-35); MEAN CORPUSCULAR HGB CONC 33 g/dL (31-37); MEAN CORPUSCULAR VOLUME 86 fL (79-100); MONO # 0.5 x10^3/uL (0.0-1.1); MONO % 8 % (0-9); NEUT # 3.2 x10^3uL (1.8-7.7); NEUT % 44 % (31-73); PLATELET COUNT 251 x10^3/uL (140-400); RED BLOOD COUNT 5.02 x10^6/uL (3.50-5.40); RED CELL DISTRIBUTION WIDTH 14.3 % (11.5-14.5); WHITE BLOOD COUNT 7.2 x10^3/uL (4.0-11.0)
[2018-04-12 06:46] LABS: CALCIUM 9.1 mg/dL (8.5-10.1); CREATININE 0.8 mg/dL (0.6-1.0); GFR 90.4; POTASSIUM 3.7 mmol/L (3.5-5.1)
[2018-04-12] MEDS ORDERED: PANTOPRAZOLE 40 MG TABLET. PO SCH (07:30)
--- NOTE | 2018-04-12 08:24 | PDOC ---
PROGRESS NOTES Diagnosis Problem Problems Medical Problems: (1) Arm pain Status: Acute (2) Arm pain, left Status: Acute (3) Chest pain Status: Acute Assessment Problems Medical Problems: (1) Arm pain Status: Acute (2) Arm pain, left Status: Acute (3) Chest pain Status: Acute 1. Chest pain - MPI this afternoon 2. arm pain, neck pain, cephalgia - most likely secondary to radiculopathy 3. dyspnea - VQ negative, normal LV function. ? anginal equivalent. MPI this afternoon as above. 4. palpitations - no significant arrhythmias. Outpatient monitor. 5. hypertension - fair control. Continue to monitor, increase losartan if needed. 6. hyperlipidemia - elevated Tgs - aggressive control of diabetes 7. diabetes mellitus - per PCP Subjective continues to complain of headache, left arm and neck pain. no dyspnea, palpitations or lightheadedness currently. Objective Vital Signs Date Time Temp Pulse Resp B/P (MAP) Pulse Ox O2 Delivery O2 Flow Rate FiO2 04/12/18 06:26 97.8 76 18 137/91 (106) 97 Room Air Intake and Output 04/12/18 07:00 Intake Total 2360 ml Balance 2360 ml Intake Oral 1360 ml IV Total 1000 ml # Voids 4 Abdomen: Normal bowel sounds, Soft Heart: Regular rate, Normal S1, Normal S2 Extremities: No cyanosis, Normal pulses, Other (trace edema) General: Alert, Oriented X3, Cooperative Lungs: Clear to auscultation, Normal air movement Neuro: Normal speech, Strength at 5/5 X4 ext Psych/Mental Status: Mental status NL, Mood NL Review of Relevant I have reviewed the following items melisa (where applicable) has been applied. Labs Laboratory Tests Test 04/11/18 03:27 04/11/18 03:29 04/11/18 07:21 04/11/18 10:36 White Blood Count 9.1 x10^3/uL (4.0-11.0) Red Blood Count 4.93 x10^6/uL (3.50-5.40) Hemoglobin 14.2 g/dL (12.0-15.5) Hematocrit 42.6 % (36.0-47.0) Mean Corpuscular Volume 86 fL (79-100) Mean Corpuscular Hemoglobin 29 pg (25-35) Mean Corpuscular Hemoglobin Concent 33 g/dL (31-37) Red Cell Distribution Width 14.4 % (11.5-14.5) Platelet Count 254 x10^3/uL (140-400) Neutrophils (%) (Auto) 48 % (31-73) Lymphocytes (%) (Auto) 40 % (24-48) Monocytes (%) (Auto) 9 % (0-9) Eosinophils (%) (Auto) 3 % (0-3) Basophils (%) (Auto) 0 % (0-3) Neutrophils # (Auto) 4.3 x10^3uL (1.8-7.7) Lymphocytes # (Auto) 3.6 x10^3/uL (1.0-4.8) Monocytes # (Auto) 0.8 x10^3/uL (0.0-1.1) Eosinophils # (Auto) 0.3 x10^3/uL (0.0-0.7) Basophils # (Auto) 0.0 x10^3/uL (0.0-0.2) Erythrocyte Sedimentation Rate 13 (0-25) Reticulocyte Count (auto) 1.9 % (0.5-2.5) Prothrombin Time 10.1 SEC (9.4-11.4) Prothromb Time International Ratio 1.0 (0.9-1.1) Activated Partial Thromboplast Time 25 SEC (23-33) D-Dimer (Mohini) 0.59 mg/L (0.00-0.50) Sodium Level 138 mmol/L (136-145) Potassium Level 3.5 mmol/L (3.5-5.1) Chloride Level 101 mmol/L (98-107) Carbon Dioxide Level 28 mmol/L (21-32) Anion Gap 9 (6-14) Blood Urea Nitrogen 14 mg/dL (7-20) Creatinine 1.1 mg/dL (0.6-1.0) Estimated GFR (Cockcroft-Gault) 62.6 Glucose Level 184 mg/dL (70-99) Hemoglobin A1c 7.8 % (4.8-5.6) Uric Acid 7.2 mg/dL (2.6-6.0) Calcium Level 9.1 mg/dL (8.5-10.1) Magnesium Level 1.9 mg/dL (1.8-2.4) Total Bilirubin 0.4 mg/dL (0.2-1.0) Direct Bilirubin 0.1 mg/dL (0.0-0.2) Aspartate Amino Transf (AST/SGOT) 23 U/L (15-37) Alanine Aminotransferase (ALT/SGPT) 52 U/L (14-59) Alkaline Phosphatase 168 U/L (46-116) Creatine Kinase 156 U/L (26-192) Creatine Kinase MB (Mass) 0.6 ng/mL (0.0-3.6) Creatine Kinase MB Relative Index 0.4 % (0-4) Troponin I Quantitative < 0.017 ng/mL (0-0.055) < 0.017 ng/mL (0-0.055) C-Reactive Protein 13.7 mg/L (0-3.3) PO-Qqe-L-Type Natriuretic Peptide 18 pg/mL (0-124) Total Protein 8.0 g/dL (6.4-8.2) Albumin 3.8 g/dL (3.4-5.0) Triglycerides Level 291 mg/dL (0-150) Cholesterol Level 200 mg/dL (0-200) LDL Cholesterol, Calculated 98 mg/dL (0-100) VLDL Cholesterol, Calculated 58 mg/dL (0-40) Non-HDL Cholesterol Calculated 156 mg/dL (0-129) HDL Cholesterol 44 mg/dL (40-60) Cholesterol/HDL Ratio 4.0 Lipase 148 U/L (73-393) Thyroid Stimulating Hormone (TSH) 3.033 uIU/mL (0.358-3.740) Urine Collection Type Unknown Urine Color Yellow Urine Clarity Clear Urine pH 5.5 Urine Specific [place] 1.020 Urine Protein Neg (NEG-TRACE) Urine Glucose (UA) Neg mg/dL (NEG) Urine Ketones (Stick) Neg mg/dL (NEG) Urine Blood Neg (NEG) Urine Nitrite Neg (NEG) Urine Bilirubin Neg (NEG) Urine Urobilinogen Dipstick 0.2 mg/dL (0.2 mg/dL) Urine Leukocyte Esterase Neg (NEG) Urine RBC 0 /HPF (0-2) Urine WBC Occ /HPF (0-4) Urine Squamous Epithelial Cells Few /LPF Urine Bacteria 0 /HPF (0-FEW) Urine Opiates Screen Neg (NEG) Urine Methadone Screen Neg (NEG) Urine Barbiturates Neg (NEG) Urine Phencyclidine Screen Neg (NEG) Urine Amphetamine/Methamphetamine Neg (NEG) Urine Benzodiazepines Screen Neg (NEG) Urine Cocaine Screen Neg (NEG) Urine Cannabinoids Screen Neg (NEG) Urine Ethyl Alcohol Neg (NEG) Glucose (Fingerstick) 168 mg/dL (70-99) Test 04/11/18 11:19 04/11/18 16:24 04/11/18 20:28 04/12/18 06:10 Glucose (Fingerstick) 202 mg/dL (70-99) 175 mg/dL (70-99) 225 mg/dL (70-99) White Blood Count 7.2 x10^3/uL (4.0-11.0) Red Blood Count 5.02 x10^6/uL (3.50-5.40) Hemoglobin 14.4 g/dL (12.0-15.5) Hematocrit 43.4 % (36.0-47.0) Mean Corpuscular Volume 86 fL (79-100) Mean Corpuscular Hemoglobin 29 pg (25-35) Mean Corpuscular Hemoglobin Concent 33 g/dL (31-37) Red Cell Distribution Width 14.3 % (11.5-14.5) Platelet Count 251 x10^3/uL (140-400) Neutrophils (%) (Auto) 44 % (31-73) Lymphocytes (%) (Auto) 38 % (24-48) Monocytes (%) (Auto) 8 % (0-9) Eosinophils (%) (Auto) 9 % (0-3) Basophils (%) (Auto) 1 % (0-3) Neutrophils # (Auto) 3.2 x10^3uL (1.8-7.7) Lymphocytes # (Auto) 2.7 x10^3/uL (1.0-4.8) Monocytes # (Auto) 0.5 x10^3/uL (0.0-1.1) Eosinophils # (Auto) 0.6 x10^3/uL (0.0-0.7) Basophils # (Auto) 0.1 x10^3/uL (0.0-0.2) Sodium Level 136 mmol/L (136-145) Potassium Level 3.7 mmol/L (3.5-5.1) Chloride Level 101 mmol/L (98-107) Carbon Dioxide Level 28 mmol/L (21-32) Anion Gap 7 (6-14) Blood Urea Nitrogen 10 mg/dL (7-20) Creatinine 0.8 mg/dL (0.6-1.0) Estimated GFR (Cockcroft-Gault) 90.4 Glucose Level 187 mg/dL (70-99) Calcium Level 9.1 mg/dL (8.5-10.1) Test 04/12/18 07:17 Glucose (Fingerstick) 175 mg/dL (70-99) Medications Current Medications Aspirin (Children'S Aspirin) 324 mg 1X ONCE PO Last administered on 04/11/18 03:52; Start 04/11/18 at 03:30; Stop 04/11/18 at 03:31; Status DC Lactated Ringer's 1,000 ml @ 1,000 mls/hr Q1H IV Last administered on 03:52; Start 04/11/18 at 03:30; Stop 04/11/18 at 04:30; Status DC Morphine Sulfate (Morphine 10mg Syringe) 10 mg 1X ONCE SQ Last administered on 04/11/18 03:52; Start 04/11/18 at 03:30; Stop 04/11/18 at 03:31; Status DC Colchicine (Colcrys) 0.6 mg 1X ONCE PO Last administered on 04/11/18 03:51; Start 04/11/18 at 03:30; Stop 04/11/18 at 03:31; Status DC Morphine Sulfate (Morphine 10mg Syringe) 10 mg 1X ONCE SQ Last administered on 04/11/18 04:51; Start 04/11/18 at 05:00; Stop 04/11/18 at 05:02; Status DC Enoxaparin Sodium (Lovenox 100mg Syringe) 100 mg 1X ONCE SQ Last administered on 04/11/18 04:50; Start 04/11/18 at 05:00; Stop 04/11/18 at 05:02; Status DC Enoxaparin Sodium (Lovenox 100mg Syringe) 100 mg BID SQ Last administered on 20:23; Start 04/11/18 at 21:00 Colchicine (Colcrys) 0.6 mg TID PO Last administered on 04/11/18at 20:21; Start 04/11/18 at 14:00 Info (Anti-Coagulation Monitoring By Pharmacy) 1 each PRN DAILY PRN MC SEE COMMENTS; Start 04/11/18 at 05:15 Ketorolac Tromethamine (Toradol) 30 mg PRN Q6HRS PRN IV PAIN Last administered on 04/11/18at 09:10; Start 04/11/18 at 07:45; Stop 04/16/18 at 07:44 Cyclobenzaprine HCl (Flexeril) 10 mg TID PO Last administered on 04/11/18at 20: 23; Start 04/11/18 at 14:00 Hydroxyzine HCl (Atarax) 25 mg PRN TID PRN PO migraines; Start 04/11/18 at 09: 15 Metoprolol Tartrate (Lopressor) 25 mg BID PO Last administered on 04/11/18at 20: 21; Start 04/11/18 at 10:00 Potassium Chloride (Klor-Con) 20 meq DAILY PO Last administered on 04/11/18at 10 :58; Start 04/11/18 at 10:00 Vitamin D (Vitamin D3) 50,000 unit WEEKLY PO ; Start 04/18/18 at 09:00 Gabapentin (Neurontin) 600 mg TID PO Last administered on 04/11/18at 20:23; Start 04/11/18 at 14:00 Non-Formulary Medication (Levalbuterol Tartrate (Xopenex Hfa)) 3 puff PRN Q4- 6HRS IH ; Start 04/11/18 at 09:15; Stop 04/11/18 at 10:10; Status DC Magnesium Oxide (Magnesium Oxide) 200 mg TID PO Last administered on 04/11/18at 20:32; Start 04/11/18 at 14:00 Non-Formulary Medication (Meloxicam ) 7.5 mg TID PO ; Start 04/11/18 at 14:00; Stop 04/11/18 at 14:00; Status DC Montelukast Sodium (Singulair) 10 mg QHS PO Last administered on 04/11/18at 20: 20; Start 04/11/18 at 21:00 Pantoprazole Sodium (Protonix) 40 mg DAILYAC PO ; Start 04/12/18 at 07:30 Topiramate (Topamax) 100 mg BID PO Last administered on 04/11/18at 20:21; Start 04/11/18 at 10:00 Triamterene/HCTZ (Maxzide 37.5/ 25mg) 1 tab DAILY PO Last administered on at 10:58; Start 04/11/18 at 10:00 Orphenadrine Citrate (Norflex) 60 mg 1X ONCE IM Last administered on at 10:57; Start 04/11/18 at 09:30; Stop 04/11/18 at 09:51; Status DC Albuterol Sulfate (Ventolin) 2.5 mg PRN Q4HRS PRN NEB SHORTNESS OF BREATH; Start 04/11/18 at 10:15 Losartan Potassium (Cozaar) 25 mg DAILY PO ; Start 04/12/18 at 09:00 Amlodipine Besylate (Norvasc) 10 mg DAILY PO Last administered on 04/11/18at 20: 22; Start 04/11/18 at 19:45 Orphenadrine Citrate (Norflex) 60 mg 1X ONCE IM Last administered on at 20:24; Start 04/11/18 at 20:00; Stop 04/11/18 at 20:01; Status DC Active Scripts Active Klor-Con M20 (Potassium Chloride) 20 Meq Tab.er.prt 1 Tab PO DAILY Reported Topiramate 100 Mg Tablet 100 Mg PO BID Vitamin D2 (Ergocalciferol (Vitamin D2)) 50,000 Unit Capsule 1 Cap PO WEEKLY weekly on tuesdays Metoprolol Tartrate 25 Mg Tablet 25 Mg PO BID Magnesium (Magnesium Oxide) 250 Mg Tablet 250 Mg PO TID Hydroxyzine Hcl 25 Mg Tablet 25 Mg PO PRN TID PRN Meloxicam 7.5 Mg Tablet 7.5 Mg PO TID Xopenex Hfa (Levalbuterol Tartrate) 15 Gm Hfa.aer.ad 3 Puff IH PRN Q4-6HRS Gabapentin 600 Mg Tablet 600 Mg PO TID Triamterene-Hctz 37.5-25 Mg Cp (Triamterene/Hydrochlorothiazid) 1 Each Capsule 1 Each PO DAILY Omeprazole 20 Mg Capsule.dr 20 Mg PO DAILY Singulair Tablet (Montelukast Sodium) 10 Mg Tablet 10 Mg PO DAILY Cyclobenzaprine Hcl 10 Mg Tablet 10 Mg PO TID Vitals/I & O Vital Sign - Last 24 Hours 04/11/18 04/11/18 04/11/18 04/11/18 10:53 10:58 12:39 15:23 Temp 97.6 98.0 Pulse 94 94 77 83 Resp 24 24 B/P (MAP) 186/116 (139) 186/116 157/95 (115) 170/118 (135) Pulse Ox 90 95 O2 Delivery Room Air Room Air 04/11/18 04/11/18 04/11/18 04/11/18 19:45 20:00 20:21 20:22 Temp 97.2 Pulse 84 83 83 Resp 20 B/P (MAP) 168/115 (132) 170/118 170/118 Pulse Ox 98 O2 Delivery Room Air Room Air 04/11/18 04/12/18 23:01 06:26 Temp 97.0 97.8 Pulse 76 76 Resp 18 18 B/P (MAP) 166/119 (135) 137/91 (106) Pulse Ox 95 97 O2 Delivery Room Air Room Air Intake and Output 04/11/18 04/11/18 04/12/18 15:00 23:00 07:00 Intake Total 240 ml 1240 ml 880 ml Balance 240 ml 1240 ml 880 ml HERMINIA DUARTE [employer] 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
[2018-04-12] MEDS: amLODIPine BESYLATE 10 MG TABLET PO SCH (08:26)
[2018-04-12] MEDS: GABAPENTIN 300 MG CAPSULE. PO SCH ×2 (08:26→14:00)
[2018-04-12] MEDS: TRIAMTERENE/HCTZ 37.5/25MG TABLET. PO SCH (08:26)
[2018-04-12] MEDS: TOPIRAMATE 100 MG TABLET. PO SCH (08:26)
[2018-04-12] MEDS: COLCHICINE 0.6 MG TABLET PO SCH ×2 (08:26→14:00)
[2018-04-12] MEDS: MAGNESIUM OXIDE 400 MG TABLET PO SCH ×2 (08:27→13:59)
[2018-04-12] MEDS: POTASSIUM CHLORIDE 20 MEQ TABLET.ER. PO SCH (08:27)
[2018-04-12] MEDS: CYCLOBENZAPRINE 10 MG TABLET. PO SCH ×2 (08:27→13:59)
[2018-04-12] MEDS: ENOXAPARIN ** NOTE DOSE ** SYRINGE SQ SCH (08:28)
[2018-04-12] MEDS ORDERED: LOSARTAN 25 MG TABLET. PO SCH (09:00)
[2018-04-12 11:14] VITALS: BP 140/95
[2018-04-12] MEDS ORDERED: REGADENOSON 0.4 MG/5 ML DISP.SYRIN. IV ONE (13:15)
[2018-04-12] MEDS: METOPROLOL TART IMMED RELEASE 25 MG TABLET PO SCH (14:00)
[2018-04-12] MEDS ORDERED: MELOXICAM 7.5 MG TABLET PO PRN (14:30)
[2018-04-12 14:46] VITALS: BP 124/85
--- NOTE | 2018-04-12 15:57 | RAD ---
MR#: [id number] Date of Study: 04/12/2018 Ordering Physician: HERMINIA DUARTE, Referring Physician: RODY MCKINLEY Tech: RT Jaydon Holcomb) (N) APPROVED REPORT Test Type: Pharmacological Stress Nurse/Tech: RT Aicha (Debbie) (N) Test Indications: chest pain and abnormal EKG Cardiac History: HTN Medications: see EHR Medical History: see EHR Resting ECG: sinus rhythm with non specific changes inferior leads Resting Heart Rate: 108 bpm Resting Blood Pressure: 165/91mmHg Pretest Chest Pain: None Nurse/Tech Notes Consent: The procedure was explained to the patient in lay terms. Informed consent was witnessed. Mook eout was entered into [employer]. History and Stress Test performed by RT Jaydon Holcomb) (N) Pharm. Details Pharmacologic stress testing was performed using 0.4mg per 5ml of regadenoson given intravenously ove r 7-10 seconds. Stress Symptoms chest pain, lightheadedness and nausea POST EXERCISE Reason for Termination: Infusion complete Max HR: 144 bpm Max Blood Pressure: 166/86mmHg Chest Pain: Yes. INTERPRETATION Stress EKG Conclusion: Baseline EKG showed sinus rhythm. No ischemic changes at peak stress. No arr hythmias. Imaging Protocol IMAGE PROTOCOL: Stress Tc-99m/rest Tc-99m 2 days Rest: Stress: Viability: Radiopharm.Tc99m Sestamibi [id number] Duration 15min. Img Date 04/12/2018 Inj-Img [id number]. Stress Admin Site: IV - Right AntecubitalAdministrator: RT Jaydon Holcomb)(N) STRESS DATA End Diast. Vol.82.0mlAv. Heart Fuxw178.0bpm LVEDV index BSA1.0mlCardiac Output0.1L/min End Syst. Vol.36.0mlCO Index BSA5.4L/min LVESV index BSA1.0mlMyocardial Hrpc183.0g Eject. Zzetoabe20.0% Stress Rates Pk. Fill Rate4.82EDV/secLVtime Pk. Fill 155.84msec Pk. Empty Rate5.27ESV/secLVtime Pk. Eject90.38msec 1/3 Pk. Fill0.92EDV/sec Stress Scores Regional WT3.00Summed WT30.00 Regional WM0.00Summed WM16.00 LV Perfusion Stress scintigraphic images did not show any significant perfusion defects. Wall Motion Normal left ventricle systolic function with ejection fraction calculated at 56%. LV Perf. Quant 17 Seg. SSS1.00 Stress Defect Extent (% LAD)0.00Rest Defect Extent (% LAD)Rev. Defect Extent (% LAD)0.00 Stress Defect Extent (% LCX) 0.00Rest Defect Extent (% LCX)Rev. Defect Extent (% LCX)0.00 Stress Defect Extent (% RCA)0.00Rest Defect Extent (% RCA)Rev. Defect Extent (% RCA)0.00 Stress Defect Extent (% KELLY)0.00Rest Defect Extent (% KELLY)Rev. Defect Extent (% KELLY)0.00 Conclusion 1. Regadenoson cardioisotope stress test did not show any evidence of ischemia or infarct. 2. Normal left ventricular systolic function with ejection fraction calculated at 56%. 3. Low risk for cardiac events. Signed by : Yohannes Elam, Electronically Approved : 04/12/2018 15:56:34
[2018-04-12] MEDS ORDERED: LOSA25TA PO (16:33)
[2018-04-12] MEDS ORDERED: AMLO10TA2 PO (16:33)
--- NOTE | 2018-04-12 20:20 | DS ---
DATE OF DISCHARGE: 04/12/2018 HOSPITAL COURSE: A 52-year-old female with severe pain in her left arm. The patient otherwise says she is getting relief from the muscle relaxer. Apparently, she had her nuclear scans today and everything looked very normal. She will follow up with Cardiology as an outpatient. Her ejection fraction was approximately 56%, low risk for cardiovascular disease. Otherwise, the patient's pulse did go up to 100, blood pressure 124/85, respiratory rate 20, pulse 100, but no obvious reasons for that. She was afebrile. She may have been just excited. In any case, the patient will continue to be monitored as an outpatient. She will have some muscle relaxers that seemed to help her the most. Some Norflex in the hospital seem to give her the best relief to her discomfort there. Otherwise, we scan her whole left arm, shoulder complex, and outside of maybe some mild arthritis, nothing significant could be entertained there. The patient also had a pulmonary function, but did not show any signs of clot. IMPRESSION: Chest pain, unknown etiology, severe left arm pain and severe spasm. The patient will continue to be monitored and make further evaluation on her as an outpatient. We will have her follow up probably with the Pain Clinic if her pain continues. See MRAD. Decreased activity, severe radicular pain as well down the left arm as well as chest pain. PLAN: As above. KEN NAPIER MD DR: NANCY/mehran JOB#: [id number] / [id number]
[2018-04-13] MEDS ORDERED: ENOXAPARIN 40 MG/0.4 ML SYRINGE. SQ SCH (09:00)
[2018-04-13] MEDS ORDERED: MELOXICAM 7.5 MG TABLET PO SCH (09:00)
[2018-04-18] MEDS ORDERED: CHOLECALCIFEROL (VITAMIN D3) 50,000 UNIT CAPSULE PO SCH (09:00)
== END 2018-04-12 17:11 | disposition home or self-care (01) | DRG 313 ==
LOC: ER 02:49 → 1 SOUTH 03:30
PROVIDERS: ADMIT Family Medicine; ATTEND Family Medicine
DX: R07.9 Chest pain, unspecified (principal); D50.9 Iron deficiency anemia, unspecified; E11.9 Type 2 diabetes mellitus without complications; E66.9 Obesity, unspecified; E78.5 Hyperlipidemia, unspecified; Z88.8 Allergy status to other drugs, medicaments and biological substances; G40.909 Epilepsy, unspecified, not intractable, without status epilepticus; G47.33 Obstructive sleep apnea (adult) (pediatric); G62.9 Polyneuropathy, unspecified; G89.29 Other chronic pain; I10 Essential (primary) hypertension; I25.118 Atherosclerotic heart disease of native coronary artery with other forms of angina pectoris; I48.91 Unspecified atrial fibrillation; J44.9 Chronic obstructive pulmonary disease, unspecified; K21.9 Gastro-esophageal reflux disease without esophagitis; M10.9 Gout, unspecified; M54.10 Radiculopathy, site unspecified; Z80.1 Family history of malignant neoplasm of trachea, bronchus and lung; Z82.3 Family history of stroke; Z82.49 Family history of ischemic heart disease and other diseases of the circulatory system; Z83.3 Family history of diabetes mellitus; Z86.011 Personal history of benign neoplasm of the brain; Z86.718 Personal history of other venous thrombosis and embolism; Z86.72 Personal history of thrombophlebitis; Z90.49 Acquired absence of other specified parts of digestive tract; E66.01 Morbid (severe) obesity due to excess calories; F41.9 Anxiety disorder, unspecified; M19.90 Unspecified osteoarthritis, unspecified site
CPT/HCPCS: 36415; 71046; 73080; 73110; 78452; 78582; 80048; 80061; 80076; 80307; 81001; 82553; 82947; 83036; 83690; 83735; 83880; 84443; 84484; 84550; 85025; 85045; 85379; 85610; 85651; 85730; 86140; 93005; 93017; 93306; 93970; 93971; 96360; 96361; 96372; 96374; 96375; A9500; A9540; A9558; G0238; J1650; J1885; J2270; J2360; J2785; J7120; 97530; 97535; 99285-25; G0479

== ENCOUNTER 2019-09-14 15:50 | Emergency (ER) | payer OTHER ==
[~2019-09-14] VITALS: Ht 160 cm; Wt 100.7 kg
[~2019-09-14 15:50] MED LIST changes: +AMLO10TA8 PO; +ERGO500027 PO; -GABA600T2 PO; +GABA600T7 PO; +HYDR-2155 PO; -HYDR-2758 PO; +LOSA25TA PO; +METO25TA4 PO; -MONT10TA6 PO; +MONT10TA80 PO; +OMEP-229 PO; -OMEP20CA9 PO; +TOPI100T8 PO
--- NOTE | 2019-09-14 16:19 | PHYS DOC ---
Past History Past Medical History: CAD, Diabetes, Hypertension, Migraines, Other Additional Past Medical Histor: tachycardia Past Surgical History: Appendectomy, Other Additional Past Surgical Histo: BREAST AUGMENTATION Smoking: Non-smoker Alcohol Use: None Drug Use: None Adult General Chief Complaint Chief Complaint: [facility] HPI Patient is a 53-year-old female presents complaining of right shoulder pain that radiates into her neck for the past week to week and a half. Increased pain with movement. No relief with Flexeril. Pain is severe. No nausea or vomiting. No worsening with exertion. No recent travel, trauma, or known hypercoagulable state. Patient has a history of hypertension and tachycardia and was on a beta xenia for these. She was taken off of them because "they got better." She reports the discomfort in her shoulder is severe. No cough or shortness of breath. No swelling in her lower extremities.[] Review of Systems Review of Systems Constitutional: Denies fever or chills [] Eyes: Denies change in visual acuity, redness, or eye pain [] HENT: Denies nasal congestion or sore throat [] Respiratory: Denies cough or shortness of breath [] Cardiovascular: No additional information not addressed in HPI [] GI: Denies abdominal pain, nausea, vomiting, bloody stools or diarrhea [] : Denies dysuria or hematuria [] Musculoskeletal: See history of present illness[] Integument: Denies rash or skin lesions [] Neurologic: Denies headache, focal weakness or sensory changes [] Endocrine: Denies polyuria or polydipsia [] All other systems were reviewed and found to be within normal limits, except as documented in this note. Allergies Allergies Allergies Coded Allergies Type Severity Reaction Last Updated Verified codeine Allergy Intermediate respiratory issues 04/04/15 Yes iodine Allergy Intermediate 04/04/15 Yes iodine Allergy Intermediate 01/02/15 No penicillin Allergy Intermediate 09/14/19 Yes Barbiturates Adverse Reaction Intermediate too drowsy 09/14/19 Yes Physical Exam Physical Exam Constitutional: Well developed, well nourished, no acute distress, non-toxic appearance. [] HENT: Normocephalic, atraumatic, bilateral external ears normal, oropharynx moist, no oral exudates, nose normal. [] Eyes: PERRLA, EOMI, conjunctiva normal, no discharge. [] Neck: Normal range of motion, no tenderness, supple, no stridor. [] Cardiovascular:Heart rate is tachycardic with a regular rhythm, no murmur [] Lungs & Thorax: Bilateral breath sounds clear to auscultation [] Abdomen: Bowel sounds normal, soft, no tenderness, no masses, no pulsatile masses. [] Skin: Warm, dry, no erythema, no rash. [] Back: Tenderness of the right trapezius which re-creates the pain. There is spasm in the right trapezius as well. Full active range of motion of the right shoulder. She is distally neurovascularly intact. no CVA tenderness. [] Extremities: No tenderness, no cyanosis, no clubbing, ROM intact, no edema. [] Neurologic: Alert and oriented X 3, normal motor function, normal sensory function, no focal deficits noted. [] Psychologic: Affect normal, judgement normal, mood normal. [] Current Patient Data Vital Signs Vital Signs Date Time Temp Pulse Resp B/P (MAP) Pulse Ox O2 Delivery O2 Flow Rate FiO2 09/14/19 16:03 98.1 121 18 97 Room Air EKG EKG EKG shows a sinus tachycardia at 110 bpm, normal axis, QTC of 458 ms, no ST elevations. Interpreted by me at 1625[] Radiology/Procedures Radiology/Procedures PROCEDURE: CHEST PA & LATERAL Indication: Right shoulder pain and tachycardia TECHNIQUE: 2 views of the chest COMPARISON: None FINDINGS: Heart is normal in size. Lungs are clear. No pneumothorax or pleural effusion. Visualized bony thorax within normal limits. IMPRESSION: No acute pulmonary process.[] Course & Med Decision Making Course & Med Decision Making Pertinent Labs and Imaging studies reviewed. (See chart for details) Emergency department course: Patient arrived, was placed in bed, and tolerated exam well. She was given labetalol, 20 mg then 40 mg which proved both her heart rate and blood pressure. After family arrived, she was given narcotic pain medicine for pain management of the shoulder. Findings and plan were discussed with patient and family voiced understanding. All questions were answered. She was discharged in improved condition. Medical decision making: Patient with a history of tachycardia and hypertension who is been off her medicine for the past several years. Starting her back on labetalol. There is no evidence of hypertensive urgency/emergency. There is no evidence of pneumonia or pulmonary embolism. No evidence of dissecting thoracic aneurysm. Believe the shoulder pain to be more of a muscle sprain/strain. Understanding that NSAIDs will increase blood pressure, will start with NSAIDs as well as muscle relaxers and when necessary stronger pain medicines.[] Dragon Disclaimer Dragon Disclaimer This electronic medical record was generated, in whole or in part, using a voice recognition dictation system. Departure Departure: Impression: Primary Impression: Hypertension Additional Impressions: Tachycardia Strain of right trapezius muscle Disposition: HOME, SELF-CARE Condition: IMPROVED Referrals: KEN NAPIER MD (PCP) Follow-up in 2 days Patient Instructions: DASH Diet, Hypertension, Muscle Strain, Nonspecific Tachycardia Additional Instructions: Follow-up with your regular doctor in 2-3 days. Take your medication as prescribed. Return to the emergency department if worsening pain, weakness, or any other concerns. Scripts Orphenadrine Citrate (ORPHENADRINE CITRATE) 100 Mg Tablet.er 100 MG PO BID for muscle pain, #20 TAB.SR Prov: PAVITHRA RUBIO DO 09/14/19 Hydrocodone Bit/Acetaminophen (NORCO 5-325 TABLET) 1 Each Tablet 1 TAB PO Q4-6HRS for severe pain, #20 TAB Prov: PAVITHRA RUBIO DO 09/14/19 Meloxicam (MELOXICAM) 7.5 Mg Tablet 7.5 MG PO DAILY for PAIN, #20 TAB Prov: PAVITHRA RUBIO DO 09/14/19 Labetalol Hcl (LABETALOL HCL) 100 Mg Tablet 1 TAB PO BID for hypertension and tachycardia, #60 TAB Prov: PAVITHRA RUBIO DO 09/14/19 Problem Qualifiers Primary Impression: Hypertension Hypertension type: unspecified Qualified Codes: I10 - Essential (primary) hypertension Additional Impressions: Strain of right trapezius muscle Encounter type: initial encounter Qualified Codes: S46.811A - Strain of other muscles, fascia and tendons at shoulder and upper arm level, right arm, initial encounter PAVITHRA RUBIO DO Sep 14, 2019 16:19
[2019-09-14] MEDS ORDERED: LABETALOL 100 MG/20 ML VIAL. IV ONE ×2 (16:30→17:15)
[2019-09-14] MEDS ORDERED: KETOROLAC 15 MG/ML VIAL. IV ONE (16:30)
[2019-09-14 16:47] LABS: BASO # 0.1 x10^3/uL (0.0-0.2); BASO % 2 % (0-3); EOS # 0.4 x10^3/uL (0.0-0.7); EOS % 5 % (0-3); HEMOGLOBIN 14.1 g/dL (12.0-15.5); LYMPH # 2.6 x10^3/uL (1.0-4.8); LYMPH % 33 % (24-48); MEAN CORPUSCULAR HEMOGLOBIN 29 pg (25-35); MEAN CORPUSCULAR HGB CONC 33 g/dL (31-37); MEAN CORPUSCULAR VOLUME 88 fL (79-100); MONO # 0.6 x10^3/uL (0.0-1.1); MONO % 8 % (0-9); NEUT % 53 % (31-73); PLATELET COUNT 249 x10^3/uL (140-400); RED BLOOD COUNT 4.91 x10^6/uL (3.50-5.40); RED CELL DISTRIBUTION WIDTH 14.2 % (11.5-14.5); WHITE BLOOD COUNT 7.7 x10^3/uL (4.0-11.0)
--- NOTE | 2019-09-14 16:50 | RAD ---
Indication: Right shoulder pain and tachycardia TECHNIQUE: 2 views of the chest COMPARISON: None FINDINGS: Heart is normal in size. Lungs are clear. No pneumothorax or pleural effusion. Visualized bony thorax within normal limits. IMPRESSION: No acute pulmonary process. Electronically signed by: Kiamni Tillman DO (09/14/2019 4:47 PM) [facility]
[2019-09-14 16:57] LABS: PREG TEST PT QUAL NEGATIVE (NEG)
[2019-09-14 17:11] LABS: ALBUMIN 3.7 g/dL (3.4-5.0); ALBUMIN/GLOBULIN RATIO 0.9 (1.0-1.7); CALCIUM 8.7 mg/dL (8.5-10.1); CREATININE 0.9 mg/dL (0.6-1.0); GFR 78.7; POTASSIUM 3.9 mmol/L (3.5-5.1); TOTAL BILIRUBIN 0.4 mg/dL (0.2-1.0); TOTAL PROTEIN 7.6 g/dL (6.4-8.2)
[2019-09-14 17:23] LABS: BARBITURATES NEG (NEG); BENZODIAZEPINES NEG (NEG); CANNABINOIDS NEG (NEG); COCAINE NEG (NEG); METHADONE NEG (NEG); OPIATES POS (NEG); PHENCYCLIDINE NEG (NEG)
[2019-09-14 17:25] LABS: AMPHETAMINE/METHAMPHETAMINE NEG (NEG); BILIRUBIN,URINE NEG (NEG); CLARITY,URINE HAZY; COLOR,URINE YELLOW; GLUCOSE,URINE 100 mg/dL (NEG); UROBILINOGEN,URINE 0.2 mg/dL (0.2 mg/dL)
[2019-09-14 17:26] LABS: BACTERIA,URINE MOD /HPF (0-FEW); NITRITE,URINE NEG (NEG); RBC,URINE RARE /HPF (0-2); SQUAMOUS EPITHELIAL CELL,UR MANY /LPF
[2019-09-14] MEDS ORDERED: ORPH-16 PO (18:05)
[2019-09-14] MEDS ORDERED: MELO7.5T29 PO (18:05)
[2019-09-14] MEDS ORDERED: HYDR-3165 PO (18:05)
[2019-09-14] MEDS ORDERED: LABE100T5 PO (18:05)
[2019-09-14] MEDS ORDERED: MORPHINE SULFATE 4 MG/ML DISP.SYRIN. IV ONE (18:15)
[2019-09-14 18:28] VITALS: BP 180/118
--- NOTE | 2019-09-15 07:30 | EKG ---
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
== END 2019-09-14 18:29 | disposition home or self-care (01) ==
LOC: ER 15:50
DX: S46.811A Strain of other muscles, fascia and tendons at shoulder and upper arm level, right arm, initial encounter (principal); I10 Essential (primary) hypertension; R00.0 Tachycardia, unspecified; I25.10 Atherosclerotic heart disease of native coronary artery without angina pectoris; E11.9 Type 2 diabetes mellitus without complications; G43.909 Migraine, unspecified, not intractable, without status migrainosus; Z88.5 Allergy status to narcotic agent; Z88.0 Allergy status to penicillin; Z88.8 Allergy status to other drugs, medicaments and biological substances; X58.XXXA Exposure to other specified factors, initial encounter; Y93.89 Activity, other specified; Y92.89 Other specified places as the place of occurrence of the external cause; Y99.8 Other external cause status
CPT/HCPCS: 36415; 71046; 80053; 80307; 81001; 82947; 83690; 83735; 83880; 84443; 84484; 84703; 85025; 85379; 85610; 85730; 87086; 93005; 96374; 96375; 96376; 99285; J1885; J2270; J3490

== ENCOUNTER 2019-09-18 20:34 | Observation (INO) | payer OTHER ==
[~2019-09-18] VITALS: Ht 160 cm; Wt 99.8 kg
[~2019-09-18 20:34] MED LIST changes: +HYDR-3165 PO; +LABE100T5 PO; +ORPH-16 PO
--- NOTE | 2019-09-18 20:51 | PHYS DOC ---
Past History Past Medical History: CAD, Diabetes, DVT, High Cholesterol, Hypertension, Migraines, Other Additional Past Medical Histor: tachycardia Past Surgical History: Appendectomy, Other Additional Past Surgical Histo: BREAST AUGMENTATION Smoking: Non-smoker Alcohol Use: None Drug Use: None Adult General Chief Complaint Chief Complaint: CHEST PAIN.. I was here... .. for muscle spasms in my right shoulder and neck.. I went home .. then started felling like Crap.. all day Tuesday.... Threw up all day.... Then Tuesday.. I got a sore throat...I taking care of my three grand babies... one got strept, one got influ, one got pneumonia..." HPI HPI Patient is a 53 year old female who presents with above hx and complaints of generalized chest pain, nausea and vomiting, fever, chills, myalgia, arthralgia, malaise, sore throat, congestion, and nonproductive cough. Pt. does have hx of blood clots. Not currently on any anticoagulants. Patient states her chest discomfort is more generalized today. Patient described her pain as somewhat dull and achy. Pain is not pleuritic. Patient denies any travel. She denies any immunosuppression. Patient does not get flu vaccination. Patient has been exposed to strep, influenza, and ammonia to her grandchildren. Review of Systems Review of Systems Constitutional: Denies fever or chills [] Eyes: Denies change in visual acuity, redness, or eye pain [] HENT: Denies nasal congestion or sore throat [] Respiratory: Denies cough or shortness of breath [] Cardiovascular: No additional information not addressed in HPI [] GI: Denies abdominal pain, nausea, vomiting, bloody stools or diarrhea [] : Denies dysuria or hematuria [] Musculoskeletal: Denies back pain or joint pain [] Integument: Denies rash or skin lesions [] Neurologic: Denies headache, focal weakness or sensory changes [] Endocrine: Denies polyuria or polydipsia [] All other systems were reviewed and found to be within normal limits, except as documented in this note. Family History Family History Grandchildren with influenza, strep, pneumonia Current Medications Current Medications See nursing for home medications Allergies Allergies Allergies Coded Allergies Type Severity Reaction Last Updated Verified codeine Allergy Intermediate respiratory issues 04/04/15 Yes iodine Allergy Intermediate 04/04/15 Yes iodine Allergy Intermediate 01/02/15 No penicillin Allergy Intermediate 09/14/19 Yes Barbiturates Adverse Reaction Intermediate too drowsy 09/14/19 Yes Physical Exam Physical Exam Constitutional: In moderate acute distress, non-toxic appearance. [] HENT: Normocephalic, atraumatic, bilateral external ears normal, oropharynx moist, no oral exudates, nose swollen turbinates and clear rhinorrhea Eyes: PERRLA, EOMI, conjunctiva normal, no discharge. [] Neck: Normal range of motion, no tenderness, supple, no stridor. [] Cardiovascular: Tachycardia Heart rate regular rhythm, no murmur, PMI to the left Lungs & Thorax: Bilateral breath sounds equal apex with scattered wheezes and basilar crackles crackles bilaterally on auscultation []Scars. Abdomen: Bowel sounds normal, soft, no tenderness, no masses, no pulsatile masses. [Obese. Old surgical scar Skin: Warm, dry, no erythema, no rash. [] Back: No tenderness, no CVA tenderness. [] Extremities: No tenderness, no cyanosis, no clubbing, ROM intact, trace edema. [] No true cording appreciated Neurologic: Alert and oriented X 3, normal motor function, normal sensory function, no focal deficits noted. [] Psychologic: Affect anxious, judgement normal, mood normal. [] EKG EKG I interpretation EKG shows a sinus tachycardia 113 bpm. Bimodal P-wave's . No findings acute STEMI with contralateral changes. Radiology/Procedures Radiology/Procedures [][place] [address] IMAGING REPORT Signed PATIENT: JERROD CUMMINS I ACCOUNT: [id number] : 1965 LOCATION: ER AGE: 53 SEX: F EXAM STATUS: REG ER ORD. PHYSICIAN: PAVITHRA RUBIO DO REASON: right shoulder pain, tachycardia, hypertension PROCEDURE: CHEST PA & LATERAL Indication: Right shoulder pain and tachycardia TECHNIQUE: 2 views of the chest COMPARISON: None FINDINGS: Heart is normal in size. Lungs are clear. No pneumothorax or pleural effusion. Visualized bony thorax within normal limits. IMPRESSION: No acute pulmonary process. Electronically signed by: Kimani Tillman DO (09/14/2019 4:47 PM) [facility] DICTATED AND SIGNED BY: KIMANI TILLMAN DO DATE: 09/14/191646 CC: KEN NAPIER MD; PAVITHRA RUBIO DO ~ Course & Med Decision Making Course & Med Decision Making Pertinent Labs and Imaging studies reviewed. (See chart for details) Pt. Admitted to Dr. Napier and cardiology consult. Pt. Allergic to contrast dye, will get US of legs, arm and VQ in Am. Pt. Heart score= 4-5 1. Influenza A+ 2. Chest pain 3. Elevated D-dimer = 1.49 4. DM - glucose 148 5. Elevated Alk Phos 176 6. Elevated CK 281 7. Elevated BNP 518 8. Accelerated Hypertension [] Dragon Disclaimer Dragon Disclaimer This electronic medical record was generated, in whole or in part, using a voice recognition dictation system. Departure Departure: Disposition: 01 HOME/RESIDENCE PRIOR TO ADM Condition: STABLE Referrals: KEN NAPIER MD (PCP) Dragon Disclaimer This chart was dictated in whole or in part using Voice Recognition software in a busy, high-work load, and often noisy Emergency Department environment. It may contain unintended and wholly unrecognized errors or omissions. KALIE HENDRIX MD Sep 18, 2019 20:51
[2019-09-18] MEDS ORDERED: IV RINGERS SOLUTION,LACTATED 1,000 ML IV SCH (20:52)
[2019-09-18] MEDS ORDERED: ONDANSETRON PF 4 MG/2 ML VIAL. IVP ONE ×2 (21:00→23:00)
[2019-09-18] MEDS ORDERED: methylPREDNISolone SOD SUCC PF 125 MG/2 ML VIAL. IV ONE (21:00)
[2019-09-18] MEDS ORDERED: AZITHROMYCIN 250 MG TABLET. PO ONE (21:00)
[2019-09-18] MEDS ORDERED: ASPIRIN 81 MG TAB.CHEW PO ONE (21:00)
[2019-09-18 21:23] LABS: BASO # 0.1 x10^3/uL (0.0-0.2); BASO % 1 % (0-3); EOS # 0.1 x10^3/uL (0.0-0.7); EOS % 1 % (0-3); HEMATOCRIT 42.1 % (36.0-47.0); HEMOGLOBIN 13.8 g/dL (12.0-15.5); LYMPH # 0.6 x10^3/uL (1.0-4.8); LYMPH % 10 % (24-48); MEAN CORPUSCULAR HEMOGLOBIN 29 pg (25-35); MEAN CORPUSCULAR HGB CONC 33 g/dL (31-37); MEAN CORPUSCULAR VOLUME 87 fL (79-100); MONO # 0.5 x10^3/uL (0.0-1.1); MONO % 8 % (0-9); NEUT # 4.9 x10^3uL (1.8-7.7); NEUT % 80 % (31-73); PLATELET COUNT 200 x10^3/uL (140-400); RED BLOOD COUNT 4.83 x10^6/uL (3.50-5.40); RED CELL DISTRIBUTION WIDTH 14.3 % (11.5-14.5); WHITE BLOOD COUNT 6.2 x10^3/uL (4.0-11.0)
[2019-09-18 21:35] LABS: CALCIUM 8.3 mg/dL (8.5-10.1); CREATININE 0.7 mg/dL (0.6-1.0); GFR 105.1; POTASSIUM 3.8 mmol/L (3.5-5.1)
[2019-09-18 21:47] LABS: ALBUMIN 3.9 g/dL (3.4-5.0); DIRECT BILIRUBIN 0.1 mg/dL (0.0-0.2); MAGNESIUM 1.9 mg/dL (1.8-2.4); TOTAL BILIRUBIN 0.6 mg/dL (0.2-1.0); TOTAL PROTEIN 7.3 g/dL (6.4-8.2)
[2019-09-18 22:24] LABS: BARBITURATES NEG (NEG); BENZODIAZEPINES NEG (NEG); CANNABINOIDS NEG (NEG); COCAINE NEG (NEG); METHADONE NEG (NEG); OPIATES NEG (NEG); PHENCYCLIDINE NEG (NEG)
[2019-09-18 22:28] LABS: INFLUENZA A PATIENT POSITIVE (NEGATIVE); INFLUENZA B PATIENT NEGATIVE (NEGATIVE)
[2019-09-18 22:34] LABS: AMPHETAMINE/METHAMPHETAMINE NEG (NEG)
[2019-09-18 22:39] LABS: BILIRUBIN,URINE NEG (NEG); CLARITY,URINE CLEAR; COLOR,URINE YELLOW; GLUCOSE,URINE NEG (NEG)
[2019-09-18 22:40] LABS: BACTERIA,URINE 0 /HPF (0-FEW); NITRITE,URINE NEG (NEG); SQUAMOUS EPITHELIAL CELL,UR OCC /LPF; UROBILINOGEN,URINE 0.2 mg/dL (0.2 mg/dL)
[2019-09-18] MEDS ORDERED: HYDROcodon/IBUPROFEN 7.5/200MG 1 TAB TABLET PO ONE (23:30)
[2019-09-18] MEDS ORDERED: ALBUTEROL SULFATE 8GM INHALER. INH ONE (23:30)
[2019-09-19] MEDS ORDERED: ENOXAPARIN ** NOTE DOSE ** SYRINGE SQ ONE (00:30)
--- NOTE | 2019-09-19 00:30 | EKG ---
[address] [address] Test Date: 2019-09-18 Test Time: 20:51:18 Pat Name: JERROD CUMMINS Department: Room: Gender: F [employer] Representative: : 1965 Requested By: KALIE HENDRIX Order Number: [id number] Reading MD: Measurements Intervals [place] Rate: 113 P: 48 AR: 132 QRS: 23 QRSD: 88 T: 24 QT: 330 QTc: 458 Interpretive Statements SINUS TACHYCARDIA LEFT ATRIAL ABNORMALITY ABNORMAL ECG RI6.01 No previous ECG available for comparison
[2019-09-19] MEDS ORDERED: MORPHINE SULFATE 4 MG/ML DISP.SYRIN. IV PRN (00:45)
[2019-09-19] MEDS ORDERED: ONDANSETRON PF 4 MG/2 ML VIAL. IV PRN (00:45)
[2019-09-19] MEDS ORDERED: ACETAMINOPHEN 325 MG TABLET PO PRN (00:45)
[2019-09-19] MEDS ORDERED: LABETALOL 20 MG/4 ML DISP.SYRIN. IVP ONE (02:30)
[2019-09-19 02:45] VITALS: BP 167/99
--- NOTE | 2019-09-19 04:00 | RAD ---
CHEST PA LATERAL INDICATION: Chest pain, cough, congestion. COMPARISON STUDY: 04/12/2018. FINDINGS: Lungs: Low lung volume. Right greater than left basilar heterogeneous opacities. The tracheobronchial tree and hilar structures are normal. Pleura: No pleural effusion or pneumothorax. Heart and Mediastinum: The cardiomediastinal silhouette is normal. The great vessels of the thorax are normal. IMPRESSION: Low lung volume with right greater than left basilar heterogeneous opacities, which could represent subsegmental atelectasis or potentially an infectious/inflammatory process. Electronically signed by: Manpreet Mckeon MD (09/19/2019 3:57 AM) [facility]
[2019-09-19] MEDS ORDERED: GLIP5TAB10 PO (04:23)
[2019-09-19] MEDS ORDERED: HYDR-2155 PO (04:23)
[2019-09-19 05:44] VITALS: BP 151/94
[2019-09-19] MEDS: NITROGLYCERIN OINT 1 GM PACKET. TP SCH ×3 (06:00→22:00)
[2019-09-19] MEDS ORDERED: LEVALBUTEROL TARTRATE IH SCH (06:30)
[2019-09-19] MEDS ORDERED: ALBUTEROL SULFATE 2.5 MG/3 ML NEBU. NEB PRN (07:15)
[2019-09-19] MEDS ORDERED: IPRATRPIUM/ALBUTEROL 0.5/2.5MG 3 ML NEBU. NEB SCH ×2 (08:00→14:00)
--- NOTE | 2019-09-19 08:01 | PDOC2 ---
CARDIAC CONSULT DATE OF CONSULT Date Of Consult DATE: 09/19/19 TIME: 07:52 REASON FOR CONSULT Reason for Consult Chest pain REFERRING PHYSICIAN Referring Physician Dr. Ramirez SOURCE Source: Chart review, Patient HPI History of Present Illness This is a 53 yo female who presented secondary to fevers, body aches, fatigue, nausea/vomiting, sore through, cough and congestion. Positive for Influenza. Daughters children have been sick as well. Patient reports having sharp, stabbing pain in her left chest and up her left neck, which she has had previously. Underwent echo and stress test at that time, which did not revealed any acute abnormalities. Pain was felt to be due to radiculopathy. Has had persists coughing recently. Pain in worse with applying pressure to the left chest and with certain movements. No associated shortness of breath, palpitations, or diaphoresis. Sees Dr. Prater with [facility] PAST MEDICAL HISTORY Cardiovascular: HTN, hyperipidemia Pulmonary: Other (CARLOS) GI: GERD Heme/Onc: Anemia NOS, Other (DVT) Musculoskeletal: Osteoarthritis Rheumatologic: Gout Endocrine: Diabetes PAST SURGICAL HISTORY Past Surgical History Appendectomy, Other (menisectomy right knee x 2, breast reduction) FAMILY HISTORY Family History Coronary Artery Disease, Diabetes, Heart Disease, Hypertension, Stroke SOCIAL HISTORY Smoke: No ALCOHOL: none Drugs: None Lives: with Family CURRENT MEDICATIONS Current Medications Current Medications Aspirin (Children'S Aspirin) 324 mg 1X ONCE PO Last administered on 09/18/19at 21:00; Start 09/18/19 at 21:00; Stop 09/18/19 at 21:25; Status DC Lactated Ringer's 1,000 ml @ 100 mls/hr Q10H IV Last administered on 09/18/19at 20:52; Start 09/18/19 at 20:52; Stop 09/19/19 at 06:51; Status DC Methylprednisolone Sodium Succinate (SOLU-Medrol 125MG VIAL) 125 mg 1X ONCE IV Last administered on 09/18/19at 21:00; Start 09/18/19 at 21:00; Stop 09/18/19 at 21:25; Status DC Ondansetron HCl (Zofran) 8 mg 1X ONCE IVP Last administered on 09/18/19at 21:00; Start 09/18/19 at 21:00; Stop 09/18/19 at 21:25; Status DC Azithromycin (Zithromax) 500 mg 1X ONCE PO Last administered on 09/18/19at 21:00; Start 09/18/19 at 21:00; Stop 09/18/19 at 21:25; Status DC Ondansetron HCl (Zofran) 8 mg 1X ONCE IVP Last administered on 09/18/19at 23:06; Start 09/18/19 at 23:00; Stop 09/18/19 at 23:02; Status DC Hydrocodone Bitartrate/ Ibuprofen (Vicoprofen 7.5-200) 2 tab 1X ONCE PO Last administered on 09/19/19at 00:34; Start 09/18/19 at 23:30; Stop 09/18/19 at 23:31; Status DC Albuterol Sulfate (Ventolin Hfa Inhaler) 2 puff 1X ONCE INH Last administered on 09/18/19at 23:40; Start 09/18/19 at 23:30; Stop 09/18/19 at 23:31; Status DC Enoxaparin Sodium (Lovenox 100mg Syringe) 100 mg 1X ONCE SQ Last administered on 09/19/19at 00:30; Start 09/19/19 at 00:30; Stop 09/19/19 at 00:32; Status DC Ondansetron HCl (Zofran) 4 mg PRN Q4HRS PRN IV NAUSEA/VOMITING; Start 09/19/19 at 00:45; Stop 09/20/19 at 00:44 Morphine Sulfate (Morphine 4mg Syringe) 4 mg PRN Q6HRS PRN IV PAIN; Start 09/19/19 at 00:45; Stop 09/20/19 at 00:44 Acetaminophen (Tylenol) 650 mg PRN Q4HRS PRN PO FEVER; Start 09/19/19 at 00:45; Stop 09/20/19 at 00:44 Albuterol/ Ipratropium (Duoneb) 3 ml RTQID NEB ; Start 09/19/19 at 08:00; Stop 09/20/19 at 07:59 Aspirin (Children'S Aspirin) 81 mg DAILYWBKFT PO ; Start 09/19/19 at 08:00 Enoxaparin Sodium (Lovenox 100mg Syringe) 100 mg BID SQ ; Start 09/19/19 at 09:00 Nitroglycerin (Nitro-Bid Oint) 1 inch Q8HRS TP ; Start 09/19/19 at 06:00 Labetalol HCl (Normodyne) 10 mg 1X ONCE IVP ; Start 09/19/19 at 02:30; Stop 09/19/19 at 03:38; Status DC Cyclobenzaprine HCl (Flexeril) 10 mg TID PO ; Start 09/19/19 at 09:00 Glipizide (Glucotrol) 5 mg BIDBFRMEAL PO ; Start 09/19/19 at 07:30 Acetaminophen/ Hydrocodone Bitart (Lortab 5/325) 1 tab PRN QID PRN PO PAIN; Start 09/19/19 at 06:30 Labetalol HCl (Trandate) 100 mg BID PO ; Start 09/19/19 at 09:00 Meloxicam (Mobic) 7.5 mg DAILY PO ; Start 09/19/19 at 09:00 Meloxicam (Mobic) 7.5 mg TID PO ; Start 09/19/19 at 09:00; Stop 09/19/19 at 07:24; Status DC Orphenadrine Citrate (Norflex Er) 100 mg BID PO ; Start 09/19/19 at 09:00; Status UNV Potassium Chloride (Klor-Con) 20 meq DAILY PO ; Start 09/19/19 at 09:00 Non-Formulary Medication (Ergocalciferol (Vitamin D2) (Vitamin D2)) 1 cap WEEKLY PO ; Start 09/19/19 at 09:00; Status UNV Gabapentin (Neurontin) 600 mg TID PO ; Start 09/19/19 at 09:00 Non-Formulary Medication (Levalbuterol Tartrate (Xopenex Hfa)) 3 puff PRN Q4- 6HRS IH ; Start 09/19/19 at 06:30; Stop 09/19/19 at 07:09; Status DC Magnesium Oxide (Magnesium Oxide) 200 mg TID PO ; Start 09/19/19 at 09:00 Pantoprazole Sodium (Protonix) 40 mg DAILYAC PO ; Start 09/19/19 at 07:30 Albuterol Sulfate (Ventolin) 2.5 mg PRN Q4HRS PRN NEB SHORTNESS OF BREATH; Start 09/19/19 at 07:15 Active Scripts Active Orphenadrine Citrate 100 Mg Tablet.er 100 Mg PO BID Meloxicam 7.5 Mg Tablet 7.5 Mg PO DAILY Labetalol Hcl 100 Mg Tablet 1 Tab PO BID Klor-Con M20 (Potassium Chloride) 20 Meq Tab.er.prt 1 Tab PO DAILY Reported Hydrocodone-Apap 5-325 (Hydrocodone Bit/Acetaminophen) 1 Each Tablet 1 Tab PO PRN Q4-6HRS PRN Glipizide 5 Mg Tablet 1 Tab PO BID Vitamin D2 (Ergocalciferol (Vitamin D2)) 50,000 Unit Capsule 1 Cap PO WEEKLY weekly on tuesdays Magnesium (Magnesium Oxide) 250 Mg Tablet 250 Mg PO TID Meloxicam 7.5 Mg Tablet 7.5 Mg PO TID Xopenex Hfa (Levalbuterol Tartrate) 15 Gm Hfa.aer.ad 3 Puff IH PRN Q4-6HRS Gabapentin 600 Mg Tablet 600 Mg PO TID Omeprazole 20 Mg Capsule.dr 20 Mg PO DAILY Cyclobenzaprine Hcl 10 Mg Tablet 10 Mg PO TID ALLERGIES Allergies: Coded Allergies: codeine (Verified Allergy, Intermediate, respiratory issues, 04/04/15) iodine (Verified Allergy, Intermediate, 04/04/15) iodine (Unverified Allergy, Intermediate, 01/02/15) penicillin (Verified Allergy, Intermediate, 09/14/19) Barbiturates (Verified Adverse Reaction, Intermediate, too drowsy, 09/14/19) ROS Review of Systems 14 point ROS conducted with pertinent positives noted above in HPI PHYSICAL EXAM General: Alert, Oriented X3, Cooperative, No acute distress HEENT: Atraumatic Lungs: Other (wheezes ) Heart: Regular rate, Normal S1, Normal S2, Other (left chest tenderness upon palpitation) Abdomen: Soft, Other (obese ) Extremities: No edema, Normal pulses Skin: No rashes, No breakdown Neuro: Normal speech, Sensation intact Psych/Mental Status: Mental status NL, Mood NL MUSCULOSKELETAL: Osteoarthritic changes both hands VITALS Vital Signs Vital Signs Date Time Temp Pulse Resp B/P (MAP) Pulse Ox O2 Delivery O2 Flow Rate FiO2 09/19/19 05:44 97.8 94 20 151/94 (113) 95 Nasal Cannula 2.0 LABS LABS Laboratory Tests Test 09/18/19 20:57 09/18/19 21:41 White Blood Count 6.2 x10^3/uL (4.0-11.0) Red Blood Count 4.83 x10^6/uL (3.50-5.40) Hemoglobin 13.8 g/dL (12.0-15.5) Hematocrit 42.1 % (36.0-47.0) Mean Corpuscular Volume 87 fL (79-100) Mean Corpuscular Hemoglobin 29 pg (25-35) Mean Corpuscular Hemoglobin Concent 33 g/dL (31-37) Red Cell Distribution Width 14.3 % (11.5-14.5) Platelet Count 200 x10^3/uL (140-400) Neutrophils (%) (Auto) 80 % (31-73) Lymphocytes (%) (Auto) 10 % (24-48) Monocytes (%) (Auto) 8 % (0-9) Eosinophils (%) (Auto) 1 % (0-3) Basophils (%) (Auto) 1 % (0-3) Neutrophils # (Auto) 4.9 x10^3uL (1.8-7.7) Lymphocytes # (Auto) 0.6 x10^3/uL (1.0-4.8) Monocytes # (Auto) 0.5 x10^3/uL (0.0-1.1) Eosinophils # (Auto) 0.1 x10^3/uL (0.0-0.7) Basophils # (Auto) 0.1 x10^3/uL (0.0-0.2) Prothrombin Time 10.9 SEC (9.4-11.4) Prothromb Time International Ratio 1.1 (0.9-1.1) Activated Partial Thromboplast Time 30 SEC (23-33) D-Dimer (Mohini) 1.49 mg/L (0.00-0.50) Sodium Level 137 mmol/L (136-145) Potassium Level 3.8 mmol/L (3.5-5.1) Chloride Level 100 mmol/L (98-107) Carbon Dioxide Level 26 mmol/L (21-32) Anion Gap 11 (6-14) Blood Urea Nitrogen 5 mg/dL (7-20) Creatinine 0.7 mg/dL (0.6-1.0) Estimated GFR (Cockcroft-Gault) 105.1 Glucose Level 148 mg/dL (70-99) Calcium Level 8.3 mg/dL (8.5-10.1) Magnesium Level 1.9 mg/dL (1.8-2.4) Total Bilirubin 0.6 mg/dL (0.2-1.0) Direct Bilirubin 0.1 mg/dL (0.0-0.2) Aspartate Amino Transf (AST/SGOT) 35 U/L (15-37) Alanine Aminotransferase (ALT/SGPT) 58 U/L (14-59) Alkaline Phosphatase 176 U/L (46-116) Creatine Kinase 281 U/L (26-192) Troponin I Quantitative < 0.017 ng/mL (0-0.055) GN-Gte-R-Type Natriuretic Peptide 518 pg/mL (0-124) Total Protein 7.3 g/dL (6.4-8.2) Albumin 3.9 g/dL (3.4-5.0) Lipase 79 U/L (73-393) Urine Collection Type Unknown Urine Color Yellow Urine Clarity Clear Urine pH 7.0 Urine Specific [place] 1.025 Urine Protein 100 mg/dl (NEG-TRACE) Urine Glucose (UA) Neg mg/dL (NEG) Urine Ketones (Stick) 40 mg/dL (NEG) Urine Blood Trace (NEG) Urine Nitrite Neg (NEG) Urine Bilirubin Neg (NEG) Urine Urobilinogen Dipstick 0.2 mg/dL (0.2 mg/dL) Urine Leukocyte Esterase Neg (NEG) Urine RBC 1-2 /HPF (0-2) Urine WBC 1-4 /HPF (0-4) Urine Squamous Epithelial Cells Occ /LPF Urine Bacteria 0 /HPF (0-FEW) Urine Mucus Slight /LPF Urine Opiates Screen Neg (NEG) Urine Methadone Screen Neg (NEG) Urine Barbiturates Neg (NEG) Urine Phencyclidine Screen Neg (NEG) Urine Amphetamine/Methamphetamine Neg (NEG) Urine Benzodiazepines Screen Neg (NEG) Urine Cocaine Screen Neg (NEG) Urine Cannabinoids Screen Neg (NEG) Urine Ethyl Alcohol Neg (NEG) Influenza Type A (Rapid) Positive (NEGATIVE) Influenza Type B (Rapid) Negative (NEGATIVE) Group A Streptococcus Rapid Negative (NEGATIVE) ECHOCARDIOGRAM Echocardiogram <Conclusion> The left ventricular systolic function is normal. The Ejection Fraction is 55-60%. There is normal LV segmental wall motion. Trace mitral regurgitation. Trace tricuspid regurgitation. The PA pressure was estimated at 19 mmHg. There is no evidence of significant pericardial effusion. DATE: 04/11/18 1437 STRESS TEST Stress Test Conclusion 1. Regadenoson cardioisotope stress test did not show any evidence of ischemia or infarct. 2. Normal left ventricular systolic function with ejection fraction calculated at 56%. 3. Low risk for cardiac events. DATE: 04/12/18 1556 ASSESSMENT/PLAN Assessment/Plan 1. Weakness, fatigue, myalgias. Positive for Influenza A 2. Chest pain, atypical. 3. Chronic diastolic CHF; clinically compensated 4. Accelerated hypertension 5. Hyperlipidemia 6. Diabetes, II Recommendations Resume home antiHTN therapy. ASA, statin Outpatient echo and f/u with primary children counselor Dr. Prater Supportive care for Influenza JOSE VASQUEZ APRN Sep 19, 2019 08:01
[2019-09-19] MEDS ORDERED: CHOLECALCIFEROL (VITAMIN D3) 50,000 UNIT CAPSULE PO SCH (09:00)
[2019-09-19] MEDS ORDERED: MELOXICAM 7.5 MG TABLET PO SCH (09:00)
[2019-09-19] MEDS ORDERED: CYCLOBENZAPRINE 10 MG TABLET. PO SCH (09:00)
[2019-09-19] MEDS ORDERED: NON FORMULARY ITEM (Ergocalciferol (Vitamin D2) (Vitamin D2) 1 CAP) PO SCH (09:00)
[2019-09-19] MEDS: ASPIRIN 81 MG TAB.CHEW PO SCH (09:08)
[2019-09-19] MEDS: POTASSIUM CHLORIDE 20 MEQ TABLET.ER. PO SCH (09:08)
[2019-09-19] MEDS: glipiZIDE 5 MG TABLET PO SCH ×2 (09:08→16:57)
[2019-09-19] MEDS: LABETALOL HCL 100 MG TABLET PO SCH ×2 (09:08→21:44)
[2019-09-19] MEDS: PANTOPRAZOLE 40 MG TABLET. PO SCH (09:09)
[2019-09-19] MEDS: ENOXAPARIN ** NOTE DOSE ** SYRINGE SQ SCH ×2 (09:09→21:42)
[2019-09-19] MEDS: GABAPENTIN 300 MG CAPSULE. PO SCH ×3 (09:09→21:43)
[2019-09-19] MEDS: ORPHENADRINE ER 100 MG TABLET.ER PO SCH ×2 (09:09→21:44)
[2019-09-19] MEDS: MAGNESIUM OXIDE 400 MG TABLET PO SCH ×3 (09:10→21:43)
[2019-09-19] MEDS: MELOXICAM 7.5 MG TABLET PO SCH (09:11)
[2019-09-19] MEDS ORDERED: guaiFENesin DM 200MG/20MG 10 ML SYRUP PO PRN (09:30)
[2019-09-19] MEDS: HYDROcodone/APAP 5/325MG 1 TAB TABLET PO PRN ×2 (09:30→21:44)
[2019-09-19] MEDS: OSELTAMIVIR 75 MG CAPSULE PO SCH ×2 (10:08→21:44)
[2019-09-19] MEDS: methylPREDNISolone SOD SUCC PF 40 MG/ML VIAL. IV SCH ×2 (10:08→21:43)
[2019-09-19 10:41] VITALS: BP 150/92
--- NOTE | 2019-09-19 11:03 | RAD ---
Nuclear medicine perfusion exam History: Dyspnea, congestion, cough Comparison: September 18, 2019 chest radiograph and April 11, 2018 ventilation/perfusion exam Findings: Perfusion examination was performed. Patient declined ventilation imaging. After the administration of 5.5 mCi of technetium 99m MAA, perfusion images were acquired of the chest.. No new defined perfusion defect is identified. Impression: 1. Patient declined ventilation images. No new perfusion defect is identified. Electronically signed by: Manpreet Valencia MD (09/19/2019 11:00 AM) [id number]
[2019-09-19] MEDS ORDERED: IPRATRPIUM/ALBUTEROL 0.5/2.5MG 3 ML NEBU. NEB PRN (12:00)
[2019-09-19 13:54] LABS: THYROID STIM HORMONE (TSH) 0.659 uIU/mL (0.358-3.740)
--- NOTE | 2019-09-19 15:00 | RAD ---
VENOUS LOWER EXT BILATERAL History: Elevated d-dimer. Chest pain condition. Cough. Shortness of breath. Tachycardia. Comparison: None. Discussion: Multiple longitudinal and transverse high resolution real-time images of the venous system of bilateral lower extremity were obtained with color and Doppler sampling. The common femoral, superficial femoral, popliteal and proximal calf veins are all patent and demonstrate normal flow and compressibility. Normal respiratory phasicity and augmentation is present. Impression: 1. No evidence of deep vein thrombosis. Electronically signed by: Kwame Eddy DO (09/19/2019 2:57 PM) [id number]
--- NOTE | 2019-09-19 15:01 | RAD ---
UPPER EXT VENOUS BILATERAL History: Elevated d-dimer. Chest pain. Shortness of breath. Tachycardia. Comparison: None. Procedure: Color flow Doppler, Doppler spectral analysis, and 2D images are obtained with and without compression in the jugular vein, subclavian vein, axillary vein, brachial vein, radial vein, ulnar vein, and basilic and cephalic veins. Findings: There is normal color flow, augmentation, and compressibility of all visualized vein segments. No evidence of deep venous thrombus is present. IMPRESSION: 1. No evidence of bilateral upper extremity deep venous thrombosis. Electronically signed by: Kwame Eddy DO (09/19/2019 2:58 PM) [id number]
[2019-09-19 15:50] VITALS: BP 182/95
[2019-09-19] MEDS ORDERED: hydrALAZINE 20 MG/ML VIAL. IV PRN (18:45)
[2019-09-19 20:35] VITALS: BP 157/94
[2019-09-19] MEDS: LACTOBACILLUS RHAMNOSUS GG 1 CAPSULE. PO SCH (21:43)
[2019-09-19] MEDS: AZITHROMYCIN 250 MG TABLET. PO SCH (21:43)
--- NOTE | 2019-09-19 23:16 | HP ---
ADMIT DATE: 09/19/2019 HISTORY OF PRESENT ILLNESS: This is a pleasant 53-year-old female came in through the Emergency Room. The patient has been feeling ill with generalized complaints of chest pain, nausea, vomiting, fever, chills, myalgias or arthralgias, malaise, sore throat and nonproductive cough. The patient otherwise was noted on inspection to be positive for influenza A as well as probable pneumonia. The patient basically septic, had a high temperature as well as pulse of greater than 110 and blood pressures were also elevated up to 190 (NC), respiratory rate 20, pulse presently 94, temperature down from 100 down to 97.82 liters at 95%. The patient's V/Q scan was negative for clots. She is receiving IV antibiotic therapy, aggressive pulmonary toilet and of course medicine for her influenza. PAST MEDICAL HISTORY: Includes that of brain tumor, headache, cardiac surgery, congestive heart failure, coronary artery disease, hypercholesterolemia, DVT 5 times in the left arm, sleep apnea, obesity, arthritis, GERD, gout, right knee meniscus tear repair, back pain, diabetes, anemia. She has had blood transfusions, surgeries, bilateral mastopexy 1993, sleep difficulties with insomnia. FAMILY HISTORY: Significant for hypertension in brother, father and mother. Mother with heart failure and heart disease. Father with also coronary artery disease. Mother with myocardial infarction, stroke. Father has a history of cardiac pacemaker. Son with hyperlipidemia and a daughter with hypothyroidism. ALLERGIES: SHE HAS ALLERGIES TO BARBITURATES, CODEINE, IODINE AND PENICILLIN. HOME MEDICATIONS: Include Xopenex treatments, labetalol, meloxicam 7.5, hydrocodone, gabapentin 600, potassium chloride, magnesium oxide, Prilosec 20, glipizide 5. SOCIAL HISTORY: Denies smoking, alcohol or drug use. REVIEW OF SYSTEMS: The patient denies any visual changes, but does have headaches, generalized body achiness, fever, chills, nausea, but no vomiting. The patient has achiness throughout her body. The patient otherwise denies any melena, hematochezia, hematemesis. Neurologically, baseline for her. PHYSICAL EXAMINATION: GENERAL: This is a pleasant -[place] female, in no apparent distress. VITAL SIGNS: Blood pressure 182/95, respiratory rate 20, pulse 92, afebrile (NC). HEENT: The patient's head was atraumatic, normocephalic. Eyes: PERRLA without jaundice. The mouth and throat were normal. NECK: Supple. LUNGS: Diminished in this patient who is all over feeling quite uncomfortable. CARDIOVASCULAR: Regular sinus rhythm. ABDOMEN: Soft, nontender. EXTREMITIES: No clubbing, cyanosis or edema. NEUROLOGIC: The patient was alert and oriented x 3. Speech fluent, spontaneous, appropriate. Positive for influenza A, possible infiltrates in the lungs. The patient otherwise seems to be resting fairly comfortably and will make further evaluation on her as indicated. Otherwise, the patient will be continued to be monitored. LAB AND DIAGNOSTIC STUDIES: elevated D-dimer. V/Q scan negative. IMPRESSION: Influenza A; acute respiratory distress; pneumonia of unspecified etiology, community acquired; type 2 diabetes; morbid obesity; history of brain tumor; hypercholesterolemia; hypertriglyceridemia; history of previous DVTs; anemia of chronic disease; history of congestive heart failure; coronary artery disease. PLAN: The patient continued to be monitored carefully on her blood pressure presently and make further evaluation on her as indicated. KEN NPAIER MD DR: NANCY/mehran JOB#: [id number] / [id number]
[2019-09-19 23:40] VITALS: BP 160/110
[2019-09-20 05:55] VITALS: BP 166/113
[2019-09-20] MEDS: NITROGLYCERIN OINT 1 GM PACKET. TP SCH ×3 (06:13→22:21)
[2019-09-20 06:30] LABS: BASO % 0 % (0-3); EOS % 0 % (0-3); HEMATOCRIT 40.2 % (36.0-47.0); HEMOGLOBIN 13.2 g/dL (12.0-15.5); LYMPH # 1.1 x10^3/uL (1.0-4.8); LYMPH % 19 % (24-48); MEAN CORPUSCULAR HEMOGLOBIN 29 pg (25-35); MEAN CORPUSCULAR HGB CONC 33 g/dL (31-37); MEAN CORPUSCULAR VOLUME 88 fL (79-100); MONO # 0.4 x10^3/uL (0.0-1.1); MONO % 8 % (0-9); NEUT # 4.2 x10^3uL (1.8-7.7); NEUT % 73 % (31-73); PLATELET COUNT 202 x10^3/uL (140-400); RED CELL DISTRIBUTION WIDTH 14.5 % (11.5-14.5); WHITE BLOOD COUNT 5.8 x10^3/uL (4.0-11.0)
[2019-09-20 06:50] LABS: CALCIUM 8.5 mg/dL (8.5-10.1); CREATININE 0.8 mg/dL (0.6-1.0); GFR 90.1; POTASSIUM 4.3 mmol/L (3.5-5.1)
[2019-09-20] MEDS: LACTOBACILLUS RHAMNOSUS GG 1 CAPSULE. PO SCH ×2 (08:29→21:19)
[2019-09-20] MEDS: GABAPENTIN 300 MG CAPSULE. PO SCH ×3 (08:29→21:20)
[2019-09-20] MEDS: OSELTAMIVIR 75 MG CAPSULE PO SCH ×2 (08:30→21:19)
[2019-09-20] MEDS: MELOXICAM 7.5 MG TABLET PO SCH (08:30)
[2019-09-20] MEDS: MAGNESIUM OXIDE 400 MG TABLET PO SCH ×3 (08:30→21:21)
[2019-09-20] MEDS: glipiZIDE 5 MG TABLET PO SCH ×2 (08:31→16:43)
[2019-09-20] MEDS: POTASSIUM CHLORIDE 20 MEQ TABLET.ER. PO SCH (08:31)
[2019-09-20] MEDS: LABETALOL HCL 100 MG TABLET PO SCH ×2 (08:31→21:20)
[2019-09-20] MEDS: ASPIRIN 81 MG TAB.CHEW PO SCH (08:31)
[2019-09-20] MEDS: ORPHENADRINE ER 100 MG TABLET.ER PO SCH ×2 (08:31→21:21)
[2019-09-20] MEDS: PANTOPRAZOLE 40 MG TABLET. PO SCH (08:31)
[2019-09-20] MEDS: methylPREDNISolone SOD SUCC PF 40 MG/ML VIAL. IV SCH (08:32)
[2019-09-20] MEDS: ENOXAPARIN ** NOTE DOSE ** SYRINGE SQ SCH (08:32)
[2019-09-20] MEDS ORDERED: ZOLPIDEM 5 MG TABLET. PO PRN (09:15)
--- NOTE | 2019-09-20 09:39 | PN ---
DATE: 09/20/2019 SUBJECTIVE: The patient in with flu, pneumonia, respiratory distress. She is resting fairly comfortably this morning, making fairly good progress. Her achiness is diminished, but still having quite a bit of achiness, still requiring monitoring of that as well as her blood pressure has been shooting up, was given additional hydralazine. She is a diabetic, trying to get her sugars down, start her on metformin. Her A1c was 9. Her blood count was good. Sugar this morning 224. A1c of 9. She also has high triglycerides, although her cholesterol is reasonable, LDL of 97. Thyroid was good. Urine unremarkable. The patient positive for influenza A. OBJECTIVE: VITAL SIGNS: Otherwise, blood pressure 166/113, pulse 72. Temperature afebrile. GENERAL: The patient is alert and oriented. LUNGS: Diminished, but clear. CARDIOVASCULAR: Regular sinus rhythm. Denies chest pain, shortness of breath, abdominal pain, negative. ABDOMEN: Soft, nontender. EXTREMITIES: No clubbing, cyanosis or edema. NEUROLOGIC: Intact. LABORATORY DATA: Discussed earlier. IMPRESSION: Influenza A pneumonia of unspecified etiology, community acquired, type 2 diabetes, poorly controlled, essential hypertension, respiratory distress. KEN NAPIER MD DR: NANCY/mehran JOB#: [id number] / [id number]
[2019-09-20] MEDS: metFORMIN 500 MG TABLET PO SCH ×2 (11:00→16:36)
[2019-09-20 11:27] VITALS: BP 201/121
[2019-09-20] MEDS: LISINOPRIL 20 MG TABLET PO SCH (13:37)
[2019-09-20 15:48] VITALS: BP 165/97
[2019-09-20 19:22] VITALS: BP 173/98
[2019-09-20] MEDS: HYDROcodone/APAP 5/325MG 1 TAB TABLET PO PRN (21:20)
[2019-09-20] MEDS: AZITHROMYCIN 250 MG TABLET. PO SCH (21:21)
[2019-09-20 22:19] VITALS: BP 138/85
[2019-09-21] MEDS: NITROGLYCERIN OINT 1 GM PACKET. TP SCH ×2 (05:05→14:00)
[2019-09-21 05:50] VITALS: BP 152/102
[2019-09-21] MEDS: metFORMIN 500 MG TABLET PO SCH (08:00)
[2019-09-21] MEDS: ORPHENADRINE ER 100 MG TABLET.ER PO SCH (08:47)
[2019-09-21] MEDS: PANTOPRAZOLE 40 MG TABLET. PO SCH (08:47)
[2019-09-21] MEDS: MELOXICAM 7.5 MG TABLET PO SCH (08:47)
[2019-09-21] MEDS: OSELTAMIVIR 75 MG CAPSULE PO SCH (08:48)
[2019-09-21] MEDS: LISINOPRIL 20 MG TABLET PO SCH (08:48)
[2019-09-21] MEDS: LACTOBACILLUS RHAMNOSUS GG 1 CAPSULE. PO SCH (08:48)
[2019-09-21] MEDS: ASPIRIN 81 MG TAB.CHEW PO SCH (08:48)
[2019-09-21] MEDS: GABAPENTIN 300 MG CAPSULE. PO SCH ×2 (08:48→14:01)
[2019-09-21] MEDS: MAGNESIUM OXIDE 400 MG TABLET PO SCH ×2 (08:48→14:01)
[2019-09-21] MEDS: glipiZIDE 5 MG TABLET PO SCH (08:48)
[2019-09-21] MEDS: POTASSIUM CHLORIDE 20 MEQ TABLET.ER. PO SCH (08:48)
[2019-09-21] MEDS: LABETALOL HCL 100 MG TABLET PO SCH (08:49)
[2019-09-21] MEDS: IPRATRPIUM/ALBUTEROL 0.5/2.5MG 3 ML NEBU. NEB SCH ×2 (08:58→11:02)
[2019-09-21] MEDS ORDERED: predniSONE 20 MG TABLET PO SCH (09:00)
[2019-09-21] MEDS ORDERED: ENOXAPARIN 40 MG/0.4 ML SYRINGE. SQ SCH (09:00)
[2019-09-21] MEDS ORDERED: hydroCHLOROthiazide 12.5 MG CAPSULE PO SCH ×2 (09:00→10:00)
--- NOTE | 2019-09-21 09:10 | RAD ---
CHEST PA LATERAL Clinical indications: Chest congestion COMPARISON: September 18, 2019. Findings: Decreased inspiration is seen. Again seen is bilateral perihilar interstitial lung infiltrates with some mild improvement. There has been improvement in right lung base infiltrate. The left lung base infiltrate has mildly improved as well. No pleural effusion or pneumothorax is seen. The heart size, pulmonary vasculature, mediastinum and both ramon are unremarkable. The osseous structures appear intact. Impression: Improving bilateral perihilar interstitial lung infiltrates/pulmonary edema and improvement of bibasilar lung infiltrates. No pleural effusion. Electronically signed by: Qasim Santos MD (09/21/2019 9:07 AM) [facility]
[2019-09-21 11:30] VITALS: BP 150/93
[2019-09-21] MEDS ORDERED: LISI-334 PO (13:34)
[2019-09-21] MEDS ORDERED: AZIT500T2 PO (13:34)
[2019-09-21] MEDS ORDERED: HYDR12.572 PO (13:34)
[2019-09-21] MEDS ORDERED: METF500T PO (13:34)
[2019-09-21] MEDS ORDERED: OSEL75CA PO (13:34)
[2019-09-21] MEDS ORDERED: PRED5TAB PO (13:34)
[2019-09-21] MEDS ORDERED: ASPI-630 PO (13:34)
[2019-09-21] MEDS ORDERED: LACT1CAP19 PO (13:34)
[2019-09-21 14:00] VITALS: BP 150/93
[2019-09-21] MEDS ORDERED: MIRTAZAPINE 15 MG TABLET PO SCH (21:00)
--- NOTE | 2019-09-26 18:14 | DS ---
DATE OF DISCHARGE: 09/21/2019 HOSPITAL COURSE: A 53-year-old female who initially came in through the Emergency Room. The patient had generalized complaints of chest pain, nausea, vomiting, fever, chills, myalgias, arthralgias, malaise, sore throat, nonproductive cough amongst several other things. The patient's temperature was slightly elevated. The patient appeared to be basically septic with a high temperature, pulse rate of greater than 110. Her blood pressure also was upwards of 190 (NC). The patient was placed in the facility and she was given fluids, rule out [facility] protocol. The patient was found to have influenza A. Her sugars were up to 224 and A1c of 9, high triglycerides, obviously multiple medical issues, compounding her acute medical issue of her influenza A infection. The patient's blood sugars were monitored. She was placed on Accu-Cheks. Her triglycerides were 255, total cholesterol of 203. The patient's LDL was 97. Thyroid was good. Troponins were negative. A1c is noted. The patient's BUN and creatinine were also noted. Her white count was basically unremarkable except for her decreased lymphocytes consistent with her infection there. She had a sore throat. Throat screen was negative there. Blood cultures were also negative for no growth. The patient was ambulatory and mobile throughout with a mask of course. The patient made excellent progress during the rest of her hospitalization and was discharged home. She was warned about the contagiousness of this disease as well as the need for her to monitor her blood sugars obviously as well. The patient made good progress during the rest of her hospitalization, blood pressure was brought under control. We added hydralazine to her drug regimen. She was on a tapering dose of prednisone as well to help her breathe better. Overall, the patient made excellent progress and was discharged home. IMPRESSION: Therefore, influenza A; pneumonia of unspecified etiology, community acquired; type 2 diabetes, poorly controlled; morbid obesity; essential hypertension; respiratory distress; hypertriglyceridemia; elevated A1c of 9; chest pain. PLAN: The patient will be on a heart healthy, diabetic, low-sodium diet, decreased activity. She will follow up with Cardiology for a treadmill and make further evaluation on this young lady's multiple medical issues that need to be addressed on a continued chronic basis as indicated above. KEN NAPIER MD DR: Hoa JOB#: [id number] / [id number]
== END 2019-09-21 14:15 | disposition home or self-care (01) ==
LOC: ER 20:34 → 1 SOUTH 09-19 00:30 → INTOOBSV 09-19 00:30
PROVIDERS: ADMIT Family Medicine; ATTEND Family Medicine
DX: J09.X2 Influenza due to identified novel influenza A virus with other respiratory manifestations (principal); R07.89 Other chest pain; R06.03 Acute respiratory distress; J18.9 Pneumonia, unspecified organism; D64.9 Anemia, unspecified; I11.0 Hypertensive heart disease with heart failure; I50.9 Heart failure, unspecified; I25.10 Atherosclerotic heart disease of native coronary artery without angina pectoris; R11.2 Nausea with vomiting, unspecified; E11.9 Type 2 diabetes mellitus without complications; E78.00 Pure hypercholesterolemia, unspecified; E78.1 Pure hyperglyceridemia; E66.01 Morbid (severe) obesity due to excess calories; Z68.39 Body mass index [BMI] 39.0-39.9, adult; Z86.718 Personal history of other venous thrombosis and embolism
CPT/HCPCS: 36415; 71046; 78580; 80048; 80061; 80076; 80307; 81001; 82550; 82947; 83036; 83690; 83735; 83880; 84443; 84484; 85025; 85379; 85610; 85730; 87040; 87070; 87804; 87880; 93005; 93970; 94640; 96361; 96365; 96366; 96372; 96374; 96375; 96376; 99284; A9540; G0378; G0379; J0360; J0456; J0696; J1650; J2405; J2920; J2930; J7120; J7512; J7613; J7620; 99285-25

== ENCOUNTER 2021-03-11 11:39 | Emergency (ER) | payer OTHER ==
[~2021-03-11] VITALS: Ht 160 cm; Wt 102.3 kg
[~2021-03-11 11:39] MED LIST changes: +AMLO-187 PO; -AMLO10TA8 PO; +ASPI-630 PO; +AZIT500T2 PO; -CIPR500T PO; +CIPR500T2 PO; +GABA-586 PO; +GLIP5TAB10 PO; +HYDR12.572 PO; +LACT1CAP19 PO; +LISI20TA18 PO; +METF500T PO; -OMEP-229 PO; +OMEP20CA16 PO; +OSEL75CA PO; +PRED5TAB PO; +TRIA1TAB3 PO
[2021-03-11] MEDS ORDERED: IPRATRPIUM/ALBUTEROL 0.5/2.5MG 3 ML NEBU. NEB ONE (12:30)
--- NOTE | 2021-03-11 12:36 | PHYS DOC ---
Past History Past Medical History: CAD, COPD, Hypertension, Seizure Additional Past Medical Histor: tachycardia Past Surgical History: Appendectomy Additional Past Surgical Histo: BREAST AUGMENTATION Smoking: Non-smoker Alcohol Use: Rarely Drug Use: None General Adult EDM: Chief Complaint: HYPERTENSION HPI: HPI: Patient is a 55-year-old female sent in by practitioner at primary care offers f or hypertension. Patient states she had a home health nurse check her blood pressure at home which her systolic of 217. Blood pressure was was 230 at doctor's office. Patient states she also has a worse than normal migraine. Patient states she was at a history of migraines but woke up around 5 AM this morning with severe headache. Has had some photophobia but no vision changes. Review of Systems: Review of Systems: Constitutional: Denies fever or chills Eyes: Denies change in visual acuity HENT: Denies nasal congestion or sore throat Respiratory: Denies cough or shortness of breath Cardiovascular: Denies chest pain or edema GI: Denies abdominal pain, nausea, vomiting, bloody stools or diarrhea : Denies dysuria Musculoskeletal: Denies back pain or joint pain Integument: Denies rash Neurologic: Denies headache, focal weakness or sensory changes Endocrine: Denies polyuria or polydipsia Lymphatic: Denies swollen glands Psychiatric: Denies depression or anxiety Current Medications: Current Meds: Current Medications Medications (Trade) Dose Ordered Sig/Richa Start Time Stop Time Status Last Admin Dose Admin Albuterol/ Ipratropium (Duoneb) 3 ml 1X ONCE 03/11/21 12:30 03/11/21 12:31 DC Allergies: Allergies: Allergies Coded Allergies Type Severity Reaction Last Updated Verified codeine Allergy Intermediate respiratory issues 04/04/15 Yes iodine Allergy Intermediate 04/04/15 Yes iodine Allergy Intermediate 01/02/15 No penicillin Allergy Intermediate 09/14/19 Yes Barbiturates Adverse Reaction Intermediate too drowsy 09/14/19 Yes Physical Exam: PE: Constitutional: Well developed, well nourished, no acute distress, non-toxic appearance. [] HENT: Normocephalic, atraumatic, bilateral external ears normal, oropharynx moist, no oral exudates, nose normal. [] Eyes: PERRLA, EOMI, conjunctiva normal, no discharge. [] Neck: Normal range of motion, no tenderness, supple, no stridor. [] Cardiovascular:Heart rate regular rhythm, no murmur [] Lungs & Thorax: Bilateral breath sounds clear to auscultation [] Abdomen: Bowel sounds normal, soft, no tenderness, no masses, no pulsatile masses. [] Skin: Warm, dry, no erythema, no rash. [] Back: No tenderness, no CVA tenderness. [] Extremities: No tenderness, no cyanosis, no clubbing, ROM intact, no edema. [] Neurologic: Alert and oriented X 3, normal motor function, normal sensory function, no focal deficits noted. [] Psychologic: Affect normal, judgement normal, mood normal. [] Current Patient Data: Vital Signs: Vital Signs Date Time Temp Pulse Resp B/P (MAP) Pulse Ox O2 Delivery O2 Flow Rate FiO2 03/11/21 11:50 98.1 92 16 211/127 (155) 98 Room Air EKG: EKG: Sinus rhythm, heart rate 83 bpm, normal axis, no ST elevation or depression, normal intervals, no ectopy. [] Radiology/Procedures: Radiology/Procedures: [address] [address] IMAGING REPORT Signed PATIENT: JERROD CUMMINS I ACCOUNT: [id number] : 1965 LOCATION: ER AGE: 55 SEX: F EXAM STATUS: REG ER ORD. PHYSICIAN: CHAD NICE MD REASON: headache, htn PROCEDURE: CT HEAD WO CONTRAST CT HEAD/BRAIN WO Date: 03/11/2021 12:36 PM Clinical Indication: headache, htn Comparison: None. Technique: 5 mm axial tomographic images were obtained of the head without contrast. These were viewed on brain and bone windows. One or more of the following dose reduction techniques were utilized: Automated exposure control (AEC), Adjustment of mA and/or kV according to patient size, Use of iterative reconstruction technique such as ASiR, CT scan done according to ALARA and image gently/image wisely Findings: The brain parenchyma is normal in attenuation. No intra- or extra-axial mass or fluid collection. No acute hemorrhage. The ventricles are normal in size, shape, and morphology. The frankel-white matter junction is normal. The subarachnoid cisterns are patent. The visualized paranasal sinuses are normal. The visualized portions of the orbits and globes are normal. The mastoid air cells are clear. The fourth mate topogram shows no lytic lesion or fracture. Impression: No acute intracranial process. Electronically signed by: Wil Mckeon MD (03/11/2021 12:55 PM) [id number] DICTATED AND SIGNED BY: WIL MCKEON MD DATE: 03/11/21 1254 CC: CHAD NICE MD; KEN NAPIER MD ~MTH0 0 [] Heart Score: C/O Chest Pain: No Risk Factors: Risk Factors: DM, Current or recent (<one month) smoker, HTN, HLP, family history of CAD, obesity. Risk Scores: Score 0 - 3: 2.5% MACE over next 6 weeks - Discharge Home Score 4 - 6: 20.3% MACE over next 6 weeks - Admit for Clinical Observation Score 7 - 10: 72.7% MACE over next 6 weeks - Early Invasive Strategies Course & Med Decision Making: Course & Med Decision Making Pertinent Labs and Imaging studies reviewed. (See chart for details) Give amlodipine emergency department with some improvement in blood pressure. Discussed with patient primary care provider would like to increase her lisinopril follow-up in 1 week in clinic. [] Dragon Disclaimer: Dragon Disclaimer: This electronic medical record was generated, in whole or in part, using a voice recognition dictation system. Departure Departure: Impression: Primary Impression: Head ache Additional Impression: Hypertension Referrals: KEN NAPIER MD (PCP) Patient Instructions: Hypertension Additional Instructions: Increase lisinopril dose to 2 pills a day (40 mg) daily and follow-up with Dr. Napier in 1 week. CHAD NICE MD Mar 11, 2021 12:36
--- NOTE | 2021-03-11 12:57 | RAD ---
CT HEAD/BRAIN WO Date: 03/11/2021 12:36 PM Clinical Indication: headache, htn Comparison: None. Technique: 5 mm axial tomographic images were obtained of the head without contrast. These were view ed on brain and bone windows. One or more of the following dose reduction techniques were utilized: A utomated exposure control (AEC), Adjustment of mA and/or kV according to patient size, Use of iterati ve reconstruction technique such as ASiR, CT scan done according to ALARA and image gently/image olivas ly Findings: The brain parenchyma is normal in attenuation. No intra- or extra-axial mass or fluid collection. No acute hemorrhage. The ventricles are normal in size, shape, and morphology. The frankel-white matter jeramie ction is normal. The subarachnoid cisterns are patent. The visualized paranasal sinuses are normal. The visualized portions of the orbits and globes are no rmal. The mastoid air cells are clear. The ebd teacher topogram shows no lytic lesion or fracture. Impression: No acute intracranial process. Electronically signed by: Manpreet Mckeon MD (03/11/2021 12:55 PM) [id number]
[2021-03-11 13:09] LABS: BASO # 0.1 x10^3/uL (0.0-0.2); BASO % 1 % (0-3); EOS # 0.2 x10^3/uL (0.0-0.7); EOS % 3 % (0-3); HEMATOCRIT 44.1 % (36.0-47.0); HEMOGLOBIN 14.5 g/dL (12.0-15.5); LYMPH # 2.2 x10^3/uL (1.0-4.8); LYMPH % 32 % (24-48); MEAN CORPUSCULAR HEMOGLOBIN 29 pg (25-35); MEAN CORPUSCULAR HGB CONC 33 g/dL (31-37); MEAN CORPUSCULAR VOLUME 88 fL (79-100); MONO # 0.6 x10^3/uL (0.0-1.1); MONO % 9 % (0-9); NEUT # 3.7 x10^3uL (1.8-7.7); NEUT % 54 % (31-73); PLATELET COUNT 238 x10^3/uL (140-400); RED BLOOD COUNT 5.05 x10^6/uL (3.50-5.40); RED CELL DISTRIBUTION WIDTH 14.5 % (11.5-14.5); WHITE BLOOD COUNT 6.9 x10^3/uL (4.0-11.0)
[2021-03-11] MEDS ORDERED: amLODIPine BESYLATE 5 MG TABLET PO ONE (13:15)
[2021-03-11 13:16] LABS: CALCIUM 9.3 mg/dL (8.5-10.1); CREATININE 0.8 mg/dL (0.6-1.0); GFR 89.5; POTASSIUM 4.2 mmol/L (3.5-5.1)
[2021-03-11 13:18] LABS: BILIRUBIN,URINE NEG (NEG); CLARITY,URINE CLEAR; COLOR,URINE STRAW; GLUCOSE,URINE NEG (NEG); NITRITE,URINE NEG (NEG); UROBILINOGEN,URINE 0.2 mg/dL (0.2 mg/dL)
[2021-03-11 13:19] LABS: BACTERIA,URINE 0 /HPF (0-FEW); RBC,URINE 0 /HPF (0-2); SQUAMOUS EPITHELIAL CELL,UR FEW /LPF; WBC,URINE 0 /HPF (0-4)
[2021-03-11 13:29] LABS: ALBUMIN 4.1 g/dL (3.4-5.0); ALBUMIN/GLOBULIN RATIO 1.1 (1.0-1.7); MAGNESIUM 2.3 mg/dL (1.8-2.4); PHOSPHORUS 3.5 mg/dL (2.6-4.7); TOTAL BILIRUBIN 0.7 mg/dL (0.2-1.0); TOTAL PROTEIN 7.7 g/dL (6.4-8.2)
[2021-03-11 14:05] VITALS: BP 182/108
[2021-03-11] MEDS ORDERED: KETOROLAC 15 MG/ML VIAL. IVP ONE (14:15)
--- NOTE | 2021-03-11 18:33 | EKG ---
[address] [address] Test Date: 2021-03-11 Test Time: 11:55:37 Pat Name: JERROD CUMMINS Department: Room: Gender: F [employer]: ALEJANDRO : 1965 Requested By: CHAD NICE Order Number: [id number] Reading MD: Measurements Intervals [place] Rate: 88 P: 54 VA: 150 QRS: 6 QRSD: 84 T: 38 QT: 356 QTc: 434 Interpretive Statements SINUS RHYTHM NORMAL ECG RI6.02 No previous ECG available for comparison
== END 2021-03-11 14:27 | disposition home or self-care (01) ==
LOC: ER 11:39
DX: I10 Essential (primary) hypertension (principal); R51.9 Headache, unspecified; I25.10 Atherosclerotic heart disease of native coronary artery without angina pectoris; J44.9 Chronic obstructive pulmonary disease, unspecified; Z88.5 Allergy status to narcotic agent; Z88.0 Allergy status to penicillin; Z88.8 Allergy status to other drugs, medicaments and biological substances
CPT/HCPCS: 36415; 70450; 80053; 81001; 83735; 83880; 84100; 84443; 84484; 85025; 93005; 94640; 96374; 99285; J1885

== ENCOUNTER 2022-02-15 17:08 | Emergency (ER) | payer OTHER ==
[~2022-02-15] VITALS: Ht 160 cm; Wt 95.8 kg
[~2022-02-15 17:08] MED LIST changes: -CYCL-331 PO; +CYCL10TA19 PO; +POTA-121 PO; -POTA20TA4 PO
[2022-02-15 17:37] VITALS: BP 170/107
--- NOTE | 2022-02-15 18:12 | PHYS DOC ---
Past History Past Medical History: CAD, COPD, Hypertension, Seizure Additional Past Medical Histor: tachycardia Past Surgical History: Appendectomy Additional Past Surgical Histo: BREAST AUGMENTATION Smoking: Non-smoker Alcohol Use: Rarely Drug Use: None General Adult EDM: Chief Complaint: CHEST PAIN HPI: HPI: Patient is a 56-year-old female presents with palpitations for 1 month. Patient states that symptoms are intermittent. Denies pain. Patient states that when she has palpitations it takes her breath away. Patient feels like she has weakness and is very short of breath with exertion. Patient also has a history of COPD. Patient is denying any symptoms at this time. Patient was seen by her PCP, Dr. Reid, who sent her into the ER to be evaluated. Hypertension, hyperlipidemia, diabetes Review of Systems: Review of Systems: ROS At least 10 ROS systems have been reviewed and are negative except as documented in the HPI. General: Negative except as outlined in HPI above. Skin: Negative except as outlined in HPI above. HEENT: Negative except as outlined in HPI above. Neck: Negative except as outlined in HPI above. Respiratory: Negative except as outlined in HPI above.. Cardiovascular: Negative except as outlined in HPI above. Abdomen: Negative except as outlined in HPI above. : Negative except as outlined in HPI above. Back/MSK: Negative except as outlined in HPI above. Neuro: Negative except as outlined in HPI above. Psych: Negative except as outlined in HPI above. Allergies: Allergies: Allergies Coded Allergies Type Severity Reaction Last Updated Verified codeine Allergy Intermediate respiratory issues 04/04/15 Yes iodine Allergy Intermediate 04/04/15 Yes iodine Allergy Intermediate 01/02/15 No penicillin Allergy Intermediate 09/14/19 Yes Barbiturates Adverse Reaction Intermediate too drowsy 09/14/19 Yes Physical Exam: PE: Constitutional: Well developed, well nourished, no acute distress, non-toxic appearance. [] HENT: Normocephalic, atraumatic, bilateral external ears normal, oropharynx moist, no oral exudates, nose normal. [] Eyes: PERRLA, EOMI, conjunctiva normal, no discharge. [] Neck: Normal range of motion, no tenderness, supple, no stridor. [] Cardiovascular:Heart rate regular rhythm, no murmur [] Lungs & Thorax: Bilateral breath sounds clear to auscultation [] Abdomen: Bowel sounds normal, soft, no tenderness, no masses, no pulsatile juan diego s. [] Skin: Warm, dry, no erythema, no rash. [] Back: No tenderness, no CVA tenderness. [] Extremities: No tenderness, no cyanosis, no clubbing, ROM intact, no edema. [] Neurologic: Alert and oriented X 3, normal motor function, normal sensory function, no focal deficits noted. [] Psychologic: Affect normal, judgement normal, mood normal. [] Current Patient Data: Vital Signs: Vital Signs Date Time Temp Pulse Resp B/P (MAP) Pulse Ox O2 Delivery O2 Flow Rate FiO2 02/15/22 17:37 97.0 102 18 170/107 (128) 98 Room Air EKG: EKG: [] Radiology/Procedures: Radiology/Procedures: []AP chest x-ray HISTORY: Chest pain. COMPARISON: Chest x-ray September 21, 2019 FINDINGS: Heart size upper limits of normal. Mediastinal silhouette is normal. No pneumothorax, pulmonary opacities or pleural effusions. The bones are normal. IMPRESSION: No acute process. Electronically signed by: Rmaan Rodríguez MD (02/15/2022 6:31 PM) [facility] Heart Score: C/O Chest Pain: No HEART Score for Chest Pain: HEART Score for Chest Pain Response (Comments) Value Age >45 - < 65 1 Total 1 Risk Factors: Risk Factors: DM, Current or recent (<one month) smoker, HTN, HLP, family history of CAD, obesity. Risk Scores: Score 0 - 3: 2.5% MACE over next 6 weeks - Discharge Home Score 4 - 6: 20.3% MACE over next 6 weeks - Admit for Clinical Observation Score 7 - 10: 72.7% MACE over next 6 weeks - Early Invasive Strategies Course & Med Decision Making: Course & Med Decision Making Pertinent Labs and Imaging studies reviewed. (See chart for details) [] 56-year-old female presents with intermittent, palpitations for 1 month. Patient sent in by Dr. Reid for further evaluation. Work-up in ER CBC, CMP, Trope, chest x-ray, EKG, urinalysis. All labs unremarkable. Discussed results with patient. Advised patient she will need to follow-up with her shipsmith for further management and testing. Patient agrees with follow-up plan. I discussed return precautions in length. Patient verbalizes understanding of discharge instructions. Patient's denying any pain or palpitations at the time of discharge. Dragon Disclaimer: Dragon Disclaimer: This electronic medical record was generated, in whole or in part, using a voice recognition dictation system. Departure Departure: Impression: Primary Impression: Palpitations Disposition: HOME / SELF CARE / HOMELESS Condition: STABLE Referrals: KEN NAPIER MD (PCP) Patient Instructions: Palpitations, [id number] Additional Instructions: You are seen in the emergency room for palpitations. All of your labs are unremarkable. You need to call your shipsmith tomorrow make a follow-up appointment for further testing. If you start having chest pain, shortness of breath or any worsening symptoms or concerns, please return to the emergency room. Otherwise follow-up with Dr. Reid. EMERGENCY DEPARTMENT GENERAL DISCHARGE INSTRUCTIONS Thank you for coming to [facility] (ED) today and trusting us with you care. We trust that you had a positivie experience in our Emergency Department. If you wish to speak to the department management, you may call the director at [phone]. YOUR FOLLOW UP INSTRUCTIONS ARE FOLLOWS: 1. Do you have a private Doctor? If you do not have a private doctor, please ask for a resource list of physicians or clinics that may be able to assist you with follow up care. 2. The Emergency Physician has interpreted your x-rays. The X-Ray specialist will also review them. If there is a change in the findings, you will be notified in 48 hours when at all possible. 3. A lab test or culture has been done, your results will be reviewed and you will be notified if you need a change in treatment. ADDITIONAL INSTRUCTIONS AND INFORMATION: 1. Your care today has been supervised by a physician who is specially trained in emergency care. Many problems require more than one evaluation for a complete diagnosis and treatment. We recommend that you schedule your follow up appointment as recommended to ensure complete treatment of you illness or injury. If you are unable to obtain follow up care and continue to have a problem, or if your condition worsens, we recommend that you return to the ED. 2. We are not able to safely determine your condition over the phone nor are we able to give sound medical advice over the phone. For these safety reasons, if you call for medical advice we will ask you to come to the ED for further evaluation. 3. If you have any questions regarding these discharge instructions please call the ED at [phone]. SAFETY INFORMATION: In the interest of safety, wellness, and injury prevention; we encourage you to wear your sealbelt, if you smoke; quite smoking, and we encourage family to use a protective helmet for bicycling and other sporting events that present an increased risk for head injury. IF YOUR SYMPTOMS WORSEN OR NEW SYMPTOMS DEVELOP, OR YOU HAVE CONCERNS ABOUT YOUR CONDITION; OR IF YOUR CONDITION WORSENS WHILE YOU ARE WAITING FOR YOUR FOLLOW UP APPOINTMENT; EITHER CONTACT YOUR PRIMARY CARE DOCTOR, THE PHYSICIAN WHOSE NAME AND NUMBER YOU WERE GIVEN, OR RETURN TO THE ED IMMEDIATELY. BRIANNA KRAMER APRN February 15, 2022 18:12
[2022-02-15] MEDS ORDERED: IV NORMAL SALINE 1,000ML 1,000 ML IV SCH (18:15)
[2022-02-15 18:25] LABS: BASO # 0.1 x10^3/uL (0.0-0.2); BASO % 1 % (0-3); EOS # 0.3 x10^3/uL (0.0-0.7); EOS % 4 % (0-3); HEMATOCRIT 41.1 % (36.0-47.0); HEMOGLOBIN 13.2 g/dL (12.0-15.5); LYMPH # 2.6 x10^3/uL (1.0-4.8); LYMPH % 33 % (24-48); MEAN CORPUSCULAR HEMOGLOBIN 28 pg (25-35); MEAN CORPUSCULAR HGB CONC 32 g/dL (31-37); MEAN CORPUSCULAR VOLUME 88 fL (79-100); MONO # 0.7 x10^3/uL (0.0-1.1); MONO % 9 % (0-9); NEUT # 4.1 x10^3uL (1.8-7.7); NEUT % 53 % (31-73); PLATELET COUNT 265 x10^3/uL (140-400); RED BLOOD COUNT 4.66 x10^6/uL (3.50-5.40); RED CELL DISTRIBUTION WIDTH 15.6 % (11.5-14.5); WHITE BLOOD COUNT 7.8 x10^3/uL (4.0-11.0)
--- NOTE | 2022-02-15 18:34 | RAD ---
AP chest x-ray HISTORY: Chest pain. COMPARISON: Chest x-ray September 21, 2019 FINDINGS: Heart size upper limits of normal. Mediastinal silhouette is normal. No pneumothorax, pulmo nary opacities or pleural effusions. The bones are normal. IMPRESSION: No acute process. Electronically signed by: Raman Rodríguez MD (02/15/2022 6:31 PM) [facility]
[2022-02-15 18:36] LABS: CALCIUM 9.2 mg/dL (8.5-10.1); CREATININE 0.9 mg/dL (0.6-1.0); GFR 77.8
[2022-02-15 18:48] LABS: ALBUMIN 3.7 g/dL (3.4-5.0); ALBUMIN/GLOBULIN RATIO 1.1 (1.0-1.7); MAGNESIUM 2.1 mg/dL (1.8-2.4); TOTAL BILIRUBIN 0.4 mg/dL (0.2-1.0)
[2022-02-15] MEDS ORDERED: HYDROcodone/APAP 5/325MG 1 TAB TABLET PO ONE (20:45)
[2022-02-16] MEDS ORDERED: FLUT1BLS3 PO (12:12)
[2022-02-16] MEDS ORDERED: ERGO500090 PO (12:12)
[2022-02-16] MEDS ORDERED: LISI1TAB37 PO (12:12)
[2022-02-16] MEDS ORDERED: NIFE30TA95 PO (12:12)
[2022-02-16] MEDS ORDERED: METF500T16 PO (12:12)
[2022-02-16] MEDS ORDERED: CLON0.5T4 PO (12:12)
[2022-02-16] MEDS ORDERED: PARO10TA3 PO (12:12)
[2022-02-17] MEDS ORDERED: MONT10TA80 PO (11:23)
[2022-02-17] MEDS ORDERED: HYDR-2155 PO (11:23)
[2022-02-17] MEDS ORDERED: DOXY100T PO (11:23)
[2022-02-17] MEDS ORDERED: LABE100T5 PO (11:23)
== END 2022-02-15 21:00 | disposition home or self-care (01) ==
LOC: ER 17:08
DX: R00.2 Palpitations (principal); J44.9 Chronic obstructive pulmonary disease, unspecified; I10 Essential (primary) hypertension; Z86.73 Personal history of transient ischemic attack (TIA), and cerebral infarction without residual deficits; Z90.89 Acquired absence of other organs
CPT/HCPCS: 36415; 71045; 80053; 83735; 83880; 84484; 85025; 93005; 99285-25

== ENCOUNTER 2022-02-16 10:23 | Observation (INO) | payer OTHER ==
[~2022-02-16] VITALS: Ht 160 cm; Wt 93.9 kg
[2022-02-16] MEDS ORDERED: NIFE30TA95 PO (12:12)
[2022-02-16] MEDS ORDERED: ERGO500090 PO (12:12)
[2022-02-16] MEDS ORDERED: PARO10TA3 PO (12:12)
[2022-02-16] MEDS ORDERED: LISI1TAB37 PO (12:12)
[2022-02-16] MEDS ORDERED: FLUT1BLS3 PO (12:12)
[2022-02-16] MEDS ORDERED: METF500T16 PO (12:12)
[2022-02-16] MEDS ORDERED: CLON0.5T4 PO (12:12)
[2022-02-16 12:27] LABS: BASO # 0.1 x10^3/uL (0.0-0.2); BASO % 1 % (0-3); EOS # 0.3 x10^3/uL (0.0-0.7); EOS % 6 % (0-3); HEMATOCRIT 40.4 % (36.0-47.0); HEMOGLOBIN 13.1 g/dL (12.0-15.5); LYMPH # 2.3 x10^3/uL (1.0-4.8); LYMPH % 39 % (24-48); MEAN CORPUSCULAR HEMOGLOBIN 28 pg (25-35); MEAN CORPUSCULAR HGB CONC 33 g/dL (31-37); MEAN CORPUSCULAR VOLUME 87 fL (79-100); MONO # 0.6 x10^3/uL (0.0-1.1); MONO % 10 % (0-9); NEUT # 2.6 x10^3uL (1.8-7.7); NEUT % 45 % (31-73); PLATELET COUNT 251 x10^3/uL (140-400); RED BLOOD COUNT 4.63 x10^6/uL (3.50-5.40); RED CELL DISTRIBUTION WIDTH 15.6 % (11.5-14.5); WHITE BLOOD COUNT 5.8 x10^3/uL (4.0-11.0)
[2022-02-16 12:48] LABS: ALBUMIN 3.6 g/dL (3.4-5.0); ALBUMIN/GLOBULIN RATIO 1.1 (1.0-1.7); CALCIUM 8.8 mg/dL (8.5-10.1); CREATININE 0.9 mg/dL (0.6-1.0); GFR 77.8; POTASSIUM 3.9 mmol/L (3.5-5.1); TOTAL BILIRUBIN 0.4 mg/dL (0.2-1.0); TOTAL PROTEIN 6.9 g/dL (6.4-8.2)
[2022-02-16 13:00] VITALS: BP 148/88
--- NOTE | 2022-02-16 13:10 | RAD ---
CT chest without contrast HISTORY: Shortness of breath. Chest pain. PQRS statement: CT scans at this facility use dose reduction including either automated exposure cont rol, iterative reconstructions, and /or weight based radiation dosing via mA and kV modification when appropriate to reduce radiation dose to as low as reasonably achievable. COMPARISON: Chest x-ray February 15, 2022 FINDINGS: Heart size upper limits normal. The pulmonary vessels, aorta and esophagus are normal. No e nlarged adenopathy in the chest. Gallstones. Small right renal calculus. Trachea and bronchi are unre markable. There are several small bilateral solid pulmonary nodules measuring 5 mm or less in size of both the upper and lower lung zone. There are couple of cystic foci at the right upper lobe. Atrophy posterior right lower lobe there is a subpleural parenchymal solid irregular nodule measuring 18 x 1 4 mm with some tiny areas of internal cavitation of the nodule. No pleural effusions. Bones are unrem arkable. IMPRESSION: 1. 18 x 14 mm solid irregular pulmonary nodule with small areas of internal cavitation of the right l ower lobe. Lung malignancy is of primary concern. Given the peripheral subpleural location and smalle r areas of cavitation, a pulmonary infarct is also a possibility. Round pneumonia or atypical infecti on such as invasive fungal infection is also a possibility. Consider short-term follow-up CT chest im aging in 3 months to document that this resolves, versus further assessment with PET imaging, or need le biopsy. 2. Several bilateral small pulmonary nodules measuring 5 mm or less in size. These are indeterminate. These could be benign infectious/inflammatory nodules, or metastatic neoplastic nodules. Electronically signed by: Raman Rodríguez MD (02/16/2022 1:08 PM) [facility]
[2022-02-16] MEDS ORDERED: HYDROcodone/APAP 5/325MG 1 TAB TABLET PO PRN (13:15)
[2022-02-16] MEDS ORDERED: LEVALBUTEROL TARTRATE IH SCH (13:15)
[2022-02-16] MEDS ORDERED: clonazePAM 0.5 MG TABLET PO PRN (13:15)
[2022-02-16] MEDS ORDERED: ACETAMINOPHEN 325 MG TABLET PO ONE (13:28)
[2022-02-16] MEDS ORDERED: NON FORMULARY ITEM (Gabapentin 600 MG) PO SCH (14:00)
[2022-02-16] MEDS ORDERED: GABAPENTIN 300 MG CAPSULE. PO SCH (14:00)
[2022-02-16] MEDS ORDERED: CYCLOBENZAPRINE 10 MG TABLET. PO SCH (14:00)
--- NOTE | 2022-02-16 15:49 | RAD ---
Abdominal and Pelvis CT, Without Contrast: History: Reason: metastic cancer to the lungs / Spl. Instructions: / History: Comparison: None. Procedure: Axial images are obtained of the abdomen and pelvis, without IV or oral contrast. Oral Contrast: No Findings: Evaluation of solid organs is limited without contrast. There is a 1.6 x 1.4 cm mass in the right lung base posteriorly. His numerous small stones in gallbladder but no wall thickening or surrounding inflammation. The appendix is not visualized. There is a small fat-containing umbilical hernia. Liver: Normal. Spleen: Normal. Pancreas: Normal. Adrenal Glands: Normal. Kidneys: There are small nonobstructive stones in the renal pelvis. There is no free air or free fluid. There is no lymphadenopathy. The urinary bladder appears normal. There is no pericolonic inflammation identified. Impression: 1. Mass in the right lung base consistent with patient's history of metastatic lung cancer. 2. Cholelithiasis without acute cholecystitis. End impression PQRS Compliance Statement: One or more of the following individualized dose reduction techniques were utilized for this examinat ion: 1. Automated exposure control 2. Adjustment of the mA and/or kV according to patient size 3. Use of iterative reconstruction technique Electronically signed by: Jl Alvarez III, MD (02/16/2022 3:47 PM) [facility]
[2022-02-16 15:57] VITALS: BP 151/92
[2022-02-16] MEDS ORDERED: ENOXAPARIN 40 MG/0.4 ML SYRINGE. SQ SCH (16:00)
--- NOTE | 2022-02-16 16:20 | RAD ---
Bilateral Duplex Carotid Ultrasound Indication: Reason: dizziness/C/O neck pain / Spl. Instructions: / History: Procedure: Two dimensional, duplex and color-flow images and spectral analysis are obtained of the ca rotid arteries bilaterally. Vertebral arteries are also imaged. Findings: Right Carotid: The 2 D images demonstrate minimal plaquing with no evidence of significant narrowing . The color images are normal without turbulence or jet effect. On the right ICA peak systolic veloc ity is 99 cm/sec. I The ICA/CCA ratio is 1.0 . Left Carotid: The 2 D images demonstrate minimal plaquing with no evidence of significant narrowing. The color images are normal without turbulence or jet effect. On the left ICA peak systolic velocity is 56 cm/sec. The ICA/CCA ratio is 0.5 . There is increased velocity in the left common carotid peak systolic velocity of 168 cm per second ho wever there does not appear to be significant narrowing. Vertebral Arteries: The right vertebral artery is normal with normal direction of flow. The left [place] tebral artery is normal with normal direction of flow. Impression: No hemodynamically significant stenosis. PQRS Compliance Statement - Stenosis calculations for CT, MR and conventional angiography are based upon measurement of the distal ICA diameter in accordance with the NASCET methodology. Stenosis calc ulations for carotid ultrasound studies are derived from validated velocity criteria which are known to correlate with the NASCET methodology. Electronically signed by: Jl Alvarez III, MD (02/16/2022 4:18 PM) [facility]
[2022-02-16] MEDS ORDERED: metFORMIN 500 MG TABLET PO SCH ×2 (17:00→21:00)
[2022-02-16] MEDS: glipiZIDE 5 MG TABLET PO SCH (17:52)
[2022-02-16 18:15] LABS: BACTERIA,URINE 0 /HPF (0-FEW); CLARITY,URINE CLEAR; COLOR,URINE YELLOW; GLUCOSE,URINE NEG (NEG); NITRITE,URINE NEG (NEG); RBC,URINE 0 /HPF (0-2); SQUAMOUS EPITHELIAL CELL,UR MOD /LPF; UROBILINOGEN,URINE 0.2 mg/dL (0.2 mg/dL); WBC,URINE OCC /HPF (0-4)
[2022-02-16 19:00] VITALS: BP 141/85
[2022-02-16] MEDS: DOXYCYCLINE HYCLATE 100 MG TABLET PO SCH (20:36)
[2022-02-16] MEDS: MAGNESIUM OXIDE 400 MG TABLET PO SCH (20:36)
[2022-02-16] MEDS: ACETAMINOPHEN 500 MG TABLET PO PRN (20:37)
[2022-02-16] MEDS ORDERED: LACTOBACILLUS RHAMNOSUS GG 1 CAPSULE. PO SCH (21:00)
[2022-02-16] MEDS ORDERED: TOPIRAMATE 25 MG TABLET. PO SCH (21:00)
[2022-02-16] MEDS ORDERED: LABETALOL HCL 100 MG TABLET PO SCH (21:00)
[2022-02-16 23:00] VITALS: BP 135/84
[2022-02-17 05:00] VITALS: BP 141/90
[2022-02-17] MEDS: MAGNESIUM OXIDE 400 MG TABLET PO SCH (07:52)
[2022-02-17] MEDS: glipiZIDE 5 MG TABLET PO SCH (07:52)
[2022-02-17] MEDS: DOXYCYCLINE HYCLATE 100 MG TABLET PO SCH (07:53)
[2022-02-17] MEDS: ACETAMINOPHEN 500 MG TABLET PO PRN (08:00)
[2022-02-17] MEDS ORDERED: ASPIRIN CHEWABLE 81 MG TABLET. PO SCH (08:00)
--- NOTE | 2022-02-17 08:13 | PDOC2 ---
CARDIAC CONSULT DATE OF CONSULT DOS: DATE: 02/17/22 TIME: 08:10 REASON FOR CONSULT Reason for Consult chest pain, palpitations, shortness of breath, hypertension REFERRING PHYSICIAN Referring Physician Dr. Yip SOURCE Source: Chart review, Patient HPI History of Present Illness This is a 56-year-old female who presented as a direct admit from her primary care office due to chest pain, shortness of breath with exertion, and palpitations. Patient reports shortness of breath upon exertion for the last month. Reports that she gets very dyspneic going up stairs. Has also has intermi ttent pain in her left chest that is associated with left arm, left neck, and left jaw pain. No dizziness, diaphoresis, or nausea/vomiting. Does reports feeling brief palpitations in her chest that "take her breath away". She follow with [facility] ball maker, Dr. Prater. Saw he associate, Dr. Beavers, last week for same. Was scheduled for outpatient echocardiogram and Nt Pro BNP. Dr. Beavers was to discuss further workup with Dr. Prater. CT chest notable for right lung mass. Patient denies any history of prior mass of lung CA history. PAST MEDICAL HISTORY Past Medical History Cardiovascular: HTN, hyperipidemia Pulmonary: Other (CARLOS) GI: GERD Heme/Onc: Anemia NOS, Other (DVT) Musculoskeletal: Osteoarthritis Rheumatologic: Gout Endocrine: Diabetes PAST SURGICAL HISTORY Past Surgical History Appendectomy, Other (menisectomy right knee x 2, breast reduction) FAMILY HISTORY Family History Coronary Artery Disease, Diabetes, Heart Disease, Hypertension, Stroke, CA SOCIAL HISTORY Social History Smoke: No ALCOHOL: none Drugs: None Lives: with Family CURRENT MEDICATIONS Current Medications Current Medications Aspirin (Aspirin Chewable) 81 mg DAILYWBKFT PO Last administered on 02/17/22at 07:52; Start 02/17/22 at 08:00 Clonazepam (KlonoPIN) 0.5 mg TID PRN PO ANXIETY / AGITATION; Start 02/16/22 at 13:15; Stop 02/16/22 at 14:39; Status DC Cyclobenzaprine HCl (Flexeril) 10 mg TID PO ; Start 02/16/22 at 14:00; Stop 02/16/22 at 14:40; Status DC Gabapentin (Neurontin) 300 mg TID PO ; Start 02/16/22 at 14:00; Stop 02/16/22 at 14:40; Status DC Glipizide (Glucotrol) 5 mg BIDWMEALS PO Last administered on 02/17/22at 07:52; Start 02/16/22 at 17:00 Acetaminophen/ Hydrocodone Bitart (Lortab 5/325) 1 tab QID PRN PO PAIN; Start 02/16/22 at 13:15; Stop 02/16/22 at 14:40; Status DC Labetalol HCl (Trandate) 100 mg BID PO ; Start 02/16/22 at 21:00; Stop 02/16/22 at 14:40; Status DC Lactobacillus Rhamnosus (Culturelle) 1 cap BID PO ; Start 02/16/22 at 21:00; Stop 02/16/22 at 14:40; Status DC Meloxicam (Mobic) 7.5 mg DAILY PO ; Start 02/17/22 at 09:00; Stop 02/16/22 at 14:40; Status DC Metformin HCl (Glucophage) 500 mg BID PO ; Start 02/16/22 at 21:00; Stop 02/16/22 at 14:40; Status DC Metformin HCl (Glucophage) 500 mg BIDWMEALS PO ; Start 02/16/22 at 17:00; Stop 02/16/22 at 14:40; Status DC Montelukast Sodium (Singulair) 10 mg DAILY PO Last administered on 02/17/22at 07:52; Start 02/17/22 at 09:00 Nifedipine (Procardia Xl) 30 mg DAILY PO ; Start 02/17/22 at 09:00; Stop 02/16/22 at 14:40; Status DC Paroxetine HCl (Paxil) 10 mg DAILY PO Last administered on 02/17/22at 07:53; Start 02/17/22 at 09:00 Potassium Chloride (Klor-Con) 20 meq DAILY PO ; Start 02/17/22 at 09:00; Stop 02/16/22 at 14:40; Status DC Prednisone (Prednisone) 5 mg DAILY PO ; Start 02/17/22 at 09:00; Stop 02/16/22 at 14:40; Status DC Topiramate (Topamax) 25 mg BID PO ; Start 02/16/22 at 21:00; Stop 02/16/22 at 14:40; Status DC Triamterene/HCTZ (Maxzide 37.5/ 25mg) 1 tab DAILY PO Last administered on 02/17/22at 07:53; Start 02/17/22 at 09:00 Non-Formulary Medication (Ergocalciferol (Vitamin D2) (Vitamin D2)) 1 cap WEEKLY PO ; Start 02/23/22 at 09:00; Stop 02/16/22 at 14:40; Status DC Non-Formulary Medication (Ergocalciferol (Vitamin D2) (Vitamin D2)) 1 cap WEEKLY PO ; Start 02/23/22 at 09:00; Stop 02/16/22 at 14:40; Status DC Non-Formulary Medication (Fluticasone/ Umeclidin/ Vilanter (Trelegy Ellipta 100-62.5-25)) 1 puff DAILY PO ; Start 02/17/22 at 09:00; Stop 02/16/22 at 14:40; Status DC Non-Formulary Medication (Gabapentin ) 600 mg TID PO ; Start 02/16/22 at 14:00; Stop 02/16/22 at 14:40; Status DC Non-Formulary Medication (Levalbuterol Tartrate (Xopenex Hfa)) 3 puff PRN Q4- 6HRS IH ; Start 02/16/22 at 13:15; Stop 02/16/22 at 14:40; Status DC Magnesium Oxide (Magnesium Oxide) 400 mg TID PO Last administered on 02/17/22at 07:52; Start 02/16/22 at 21:00 Pantoprazole Sodium (Protonix) 40 mg DAILY PO Last administered on 02/17/22at 07:52; Start 02/17/22 at 09:00 Acetaminophen (Tylenol) 500 mg PRN Q6HRS PRN PO MILD PAIN / TEMP > 100.3'F Last administered on 02/17/22at 08:00; Start 02/16/22 at 13:30 Acetaminophen (Tylenol) 325 mg STK-MED ONCE PO ; Start 02/16/22 at 13:28; Stop 02/16/22 at 13:28; Status DC Enoxaparin Sodium (Lovenox 40mg Syringe) 40 mg Q24H SQ Last administered on 02/16/22at 17:52; Start 02/16/22 at 16:00 Doxycycline Hyclate (Vibra-Tab) 100 mg BID PO Last administered on 02/17/22at 07:53; Start 02/16/22 at 21:00 Active Scripts Active Aspirin 81 Mg Tab.chew 81 Mg PO DAILYWBKFT 90 Days Orphenadrine Citrate 100 Mg Tablet.er 100 Mg PO BID Reported Trelegy Ellipta 100-62.5-25 (Fluticasone/Umeclidin/Vilanter) 1 Each Blst.w.dev 1 Puff PO DAILY Paroxetine Hcl 10 Mg Tablet 1 Tab PO DAILY Lisinopril-Hctz 20-12.5 Mg Tab (Lisinopril/Hydrochlorothiazide) 1 Each Tablet 1 Tab PO DAILY Glipizide 5 Mg Tablet 1 Tab PO BID Omeprazole 20 Mg Capsule.dr 1 Cap PO DAILY ALLERGIES Allergies: Coded Allergies: codeine (Verified Allergy, Intermediate, respiratory issues, 04/04/15) iodine (Verified Allergy, Intermediate, 04/04/15) iodine (Unverified Allergy, Intermediate, 01/02/15) penicillin (Verified Allergy, Intermediate, 09/14/19) Barbiturates (Verified Adverse Reaction, Intermediate, too drowsy, 09/14/19) ROS Review of Systems 14 point ROS conducted with pertinent positives noted above in HPI PHYSICAL EXAM Physical Exam General: Alert, Oriented X3, Cooperative, No acute distress HEENT: Atraumatic Lungs: CTA, left chest tenderness upon palpation Heart: Regular rate, Normal S1, Normal S2, Abdomen: Soft, nontender Extremities: No edema, Normal pulses Skin: No rashes, No breakdown Neuro: Normal speech, Sensation intact Psych/Mental Status: Mental status NL, Mood NL MUSCULOSKELETAL: Osteoarthritic changes both hands VITALS Vital Signs Vital Signs Date Time Temp Pulse Resp B/P (MAP) Pulse Ox O2 Delivery O2 Flow Rate FiO2 02/17/22 05:00 98.0 68 16 141/90 (107) 97 Room Air LABS LABS Laboratory Tests Test 02/16/22 12:17 02/16/22 13:46 02/16/22 15:15 02/16/22 18:00 White Blood Count 5.8 x10^3/uL (4.0-11.0) Red Blood Count 4.63 x10^6/uL (3.50-5.40) Hemoglobin 13.1 g/dL (12.0-15.5) Hematocrit 40.4 % (36.0-47.0) Mean Corpuscular Volume 87 fL (79-100) Mean Corpuscular Hemoglobin 28 pg (25-35) Mean Corpuscular Hemoglobin Concent 33 g/dL (31-37) Red Cell Distribution Width 15.6 % (11.5-14.5) Platelet Count 251 x10^3/uL (140-400) Neutrophils (%) (Auto) 45 % (31-73) Lymphocytes (%) (Auto) 39 % (24-48) Monocytes (%) (Auto) 10 % (0-9) Eosinophils (%) (Auto) 6 % (0-3) Basophils (%) (Auto) 1 % (0-3) Neutrophils # (Auto) 2.6 x10^3uL (1.8-7.7) Lymphocytes # (Auto) 2.3 x10^3/uL (1.0-4.8) Monocytes # (Auto) 0.6 x10^3/uL (0.0-1.1) Eosinophils # (Auto) 0.3 x10^3/uL (0.0-0.7) Basophils # (Auto) 0.1 x10^3/uL (0.0-0.2) Sodium Level 140 mmol/L (136-145) Potassium Level 3.9 mmol/L (3.5-5.1) Chloride Level 102 mmol/L (98-107) Carbon Dioxide Level 30 mmol/L (21-32) Anion Gap 8 (6-14) Blood Urea Nitrogen 11 mg/dL (7-20) Creatinine 0.9 mg/dL (0.6-1.0) Estimated GFR (Cockcroft-Gault) 77.8 BUN/Creatinine Ratio 12 (6-20) Glucose Level 156 mg/dL (70-99) Calcium Level 8.8 mg/dL (8.5-10.1) Total Bilirubin 0.4 mg/dL (0.2-1.0) Aspartate Amino Transf (AST/SGOT) 19 U/L (15-37) Alanine Aminotransferase (ALT/SGPT) 30 U/L (14-59) Alkaline Phosphatase 122 U/L (46-116) Troponin I High Sensitivity 47 ng/L (4-50) AA-Cce-G-Type Natriuretic Peptide 284 pg/mL (0-124) Total Protein 6.9 g/dL (6.4-8.2) Albumin 3.6 g/dL (3.4-5.0) Albumin/Globulin Ratio 1.1 (1.0-1.7) Coronavirus (COVID-19)(PCR) Not detected (NOT DETECTD) SARS-CoV-2 Antigen (Rapid) Negative (NEGATIVE) D-Dimer (Mohini) 0.41 mg/L (0.00-0.50) Urine Collection Type Unknown Urine Color Yellow Urine Clarity Clear Urine pH 7.0 Urine Specific [place] 1.010 Urine Protein Neg (NEG-TRACE) Urine Glucose (UA) Neg mg/dL (NEG) Urine Ketones (Stick) Neg mg/dL (NEG) Urine Blood Neg (NEG) Urine Nitrite Neg (NEG) Urine Bilirubin Neg (NEG) Urine Urobilinogen Dipstick 0.2 mg/dL (0.2 mg/dL) Urine Leukocyte Esterase Neg (NEG) Urine RBC 0 /HPF (0-2) Urine WBC Occ /HPF (0-4) Urine Squamous Epithelial Cells Mod /LPF Urine Bacteria 0 /HPF (0-FEW) ECHOCARDIOGRAM Echocardiogram <Conclusion> The left ventricular systolic function is normal. The Ejection Fraction is 55-60%. There is normal LV segmental wall motion. Trace mitral regurgitation. Trace tricuspid regurgitation. The PA pressure was estimated at 19 mmHg. There is no evidence of significant pericardial effusion. DATE: 04/11/18 1437 STRESS TEST Stress Test Conclusion 1. Regadenoson cardioisotope stress test did not show any evidence of ischemia or infarct. 2. Normal left ventricular systolic function with ejection fraction calculated at 56%. 3. Low risk for cardiac events. DATE: 04/12/18 1556 ASSESSMENT/PLAN Assessment/Plan 1. Chest pain, LOYOLA; mixed features. Follow with [facility], Dr. Prater. Saw his partner last week in clinic due to CP, LOYOLA. Was scheduled for outpatient echo and NT Pro BNP level. 2. Palpitations; EKG shows SR. no acute events on tele. 3. Chronic diastolic CHF; clinically compensated. 4. Hypertension; mildly elevated 5. Hyperlipidemia 6. Diabetes, II 7. Right lung mass; reportedly new finding. No previous CT available for comparison Recommendations Trend trop Lipids, TSH ASA, statin Echocardiogram Will need further ischemic evaluation, but will need to keep in mind possible need for lung mass biopsy in near future, which was discussed thoroughly which patient. JOSE VASQUEZ APRN February 17, 2022 08:13
[2022-02-17] MEDS ORDERED: MELOXICAM 7.5 MG TABLET PO SCH (09:00)
[2022-02-17] MEDS ORDERED: POTASSIUM CHLORIDE 20 MEQ TABLET.ER. PO SCH (09:00)
[2022-02-17] MEDS ORDERED: MONTELUKAST 10 MG TABLET. PO SCH (09:00)
[2022-02-17] MEDS ORDERED: PANTOPRAZOLE 40 MG TABLET. PO SCH (09:00)
[2022-02-17] MEDS ORDERED: predniSONE 5 MG TABLET PO SCH (09:00)
[2022-02-17] MEDS ORDERED: NON FORMULARY ITEM (Fluticasone/Umeclidin/Vilanter (Trelegy Ellipta 100-62.5-25) 1 PUFF) PO SCH (09:00)
[2022-02-17] MEDS ORDERED: PARoxetine 10 MG TABLET PO SCH (09:00)
[2022-02-17] MEDS ORDERED: TRIAMTERENE/HCTZ 37.5/25MG TABLET. PO SCH (09:00)
[2022-02-17 11:17] VITALS: BP 159/84
[2022-02-17] MEDS ORDERED: LABE100T5 PO (11:23)
[2022-02-17] MEDS ORDERED: HYDR-2155 PO (11:23)
[2022-02-17] MEDS ORDERED: DOXY100T PO (11:23)
[2022-02-17] MEDS ORDERED: MONT10TA80 PO (11:23)
[2022-02-17] MEDS ORDERED: HYDROcodone/APAP 5/325MG 1 TAB TABLET PO ONE (11:45)
[2022-02-17 18:12] LABS: CHOLESTEROL/HDL RATIO 4.8; THYROID STIM HORMONE (TSH) 1.259 uIU/mL (0.358-3.740)
--- NOTE | 2022-02-17 20:21 | DS ---
HOSPITAL COURSE: The patient is a 56-year-old female who became increasingly short of breath and had been treated as an outpatient, failed that, and was finally brought in with a heart rate of 130, short of breath. The patient has been having night sweats for the last 2-3 months. 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 CT scan of the chest did demonstrate a 18 x 14 mm solid irregular pulmonary nodule with small areas of internal cavitation of the right lower lung, possible lung malignancy versus invasive fungal infection. The patient was placed on doxycycline. Her blood pressure and pulse were brought under control and the patient was breathing much easier. As a result of this, the patient was discharged home. She has been followed at for pulmonary problems and so we will go ahead and try to get her down there. Again, with this information to evaluate her pulmonary status versus fungal versus metastatic cancer, although a CT scan of the abdomen and pelvis was performed and was negative. Carotid Dopplers were negative. The patient's labs were pretty much unremarkable. The white count did show an elevated monocyte of 10, eosinophils of 6; otherwise, hemoglobin and white count were all normal. Chemistries were all normal except for the blood sugar of 156. She is a type 2 diabetic and a BNP elevated at 284. Troponins were negative. Albumin was 3.6 there. Urine was completely negative. Coags were negative and SARS negative. IMPRESSION AND PLAN: Cavitary lesion of the right lower lung base, sinus tachycardia, exacerbation of respiratory difficulties, night sweats. The patient will continue to be monitored. Continue on doxycycline for now. Try to get her into Pulmonary Clinic as soon as possible for further evaluation on this probable bronchoscopy and further evaluation. See MRAD. Regular diet. NANCY/LEANNE DR: NANCY/mehran TID: [id number]
[2022-02-23] MEDS ORDERED: NON FORMULARY ITEM (Ergocalciferol (Vitamin D2) (Vitamin D2) 1 CAP) PO SCH ×2 (09:00)
== END 2022-02-17 12:15 | disposition home or self-care (01) ==
LOC: INTOOBSV 11:40 → 1 SOUTH 11:40
PROVIDERS: ADMIT Family Medicine; ATTEND Family Medicine
DX: R07.89 Other chest pain (principal); Z20.822 Contact with and (suspected) exposure to COVID-19; I11.0 Hypertensive heart disease with heart failure; I50.32 Chronic diastolic (congestive) heart failure; E11.9 Type 2 diabetes mellitus without complications; G47.33 Obstructive sleep apnea (adult) (pediatric); M19.90 Unspecified osteoarthritis, unspecified site; D64.9 Anemia, unspecified; K21.9 Gastro-esophageal reflux disease without esophagitis; E78.5 Hyperlipidemia, unspecified; R00.2 Palpitations; R00.0 Tachycardia, unspecified; R61 Generalized hyperhidrosis; R42 Dizziness and giddiness; R91.8 Other nonspecific abnormal finding of lung field; Z79.899 Other long term (current) drug therapy; Z98.890 Other specified postprocedural states; Z79.82 Long term (current) use of aspirin; Z79.84 Long term (current) use of oral hypoglycemic drugs; Z90.49 Acquired absence of other specified parts of digestive tract; Z86.718 Personal history of other venous thrombosis and embolism
CPT/HCPCS: 36415; 71250; 74176; 80053; 80061; 81001; 83880; 84443; 84484; 85025; 85379; 87426; 93005; 93880; 96372; G0378; G0379; J1650; U0003